=== PATIENT | male | born 1930 | race Caucasian/White ===

== ENCOUNTER 2016-11-21 23:10 | Emergency (ER) | payer MEDICARE ==
[~2016-11-21 23:10] MED LIST: Sodium Chloride 0.9% 1,000 ML BAG ONE
[2016-11-22] LABS: #Eosinphils 0.2 thou/uL (0.0-0.7); #Lymphocytes 1.6 thou/uL (1.20-3.40); #Monocytes 0.5 thou/uL (0.11-0.59); #Neutrophils 2.8 thou/uL (1.40-6.50); %Basophils 0.9 % (0.0-1.0); %Eosinophils 4.2 % (0.0-10.0); %Lymphocytes 31.1 % (21.0-51.0); %Monocytes 9.6 % (0.0-10.0); %Neutrophils 54.2 % (42.0-75.0); Mean Corpuscular HGB CONC 32.7 g/dL (32.0-36.0); Mean Corpuscular Hemoglobin 30.9 pg (27.0-31.0); Mean Corpuscular Volume 94.6 fl (80.0-94.0); Platelet Count 153 thou/uL (130-400); Red Blood Cell (RBC) Count 4.86 mill/uL (4.70-6.10); White Blood Cell (WBC) Count 5.2 thou/uL (4.8-10.8)
[2016-11-22 00:06] LABS: Clarity Cloudy (Clear)
[2016-11-22 00:08] LABS: Leukocyte Negative (Negative); Nitrite Negative (Negative); Protein, Urine (Dipstick) > or equal to 300 mg/dL (Neg-Trace)
[2016-11-22 00:09] LABS: Bilirubin Negative (Negative); Blood, Urine Large (Negative); Glucose, Urine (Dipstick) Negative (Negative); Urobilinogen 0.2 mg/dL (0.2-1.0)
[2016-11-22 00:10] LABS: Bacteria/HPF 2+ HPF (None Seen); RBC/HPF GREATER THAN 50-TNTC HPF (0-3); WBC/HPF 0-3 HPF (0-3)
[2016-11-22 00:15] LABS: ALT (SGPT) 17 U/L (0-55); AST (SGOT) 28 U/L (5-34); Albumin 3.6 g/dL (3.4-4.8); Alkaline Phosphatase 84 U/L (40-150); Anion Gap 17 mmol/L (10-20); BUN (Urea Nitrogen) 28 mg/dL (8.4-25.7); Bilirubin, Total 0.8 mg/dL (0.2-1.2); CK (CPK) 93 U/L (30-200); Calc. Creatinine Clearance 0 mL/min (70-130); Carbon Dioxide 23 mmol/L (23-31); Chloride 103 mmol/L (98-107); Estimated GFR-MDRD 48; Globulin 2.9 g/dL (2.4-3.5); Glucose 104 mg/dL (83-110); Potassium 5.2 mmol/L (3.5-5.1); Protein, Total 6.5 g/dL (5.8-8.1); Sodium 138 mmol/L (136-145)
[2016-11-22 00:42] LABS: CKMB 2.5 ng/mL (0-6.6)
[2016-11-22 00:43] LABS: Troponin I Less than 0.010 ng/mL (< 0.028)
[2016-11-22] MEDS ORDERED: Ciprofloxacin 500 MG TAB ONE (02:03)
--- NOTE | 2016-11-22 03:09 | ERRECORD ---
[facility] EMERGENCY RECORD HPI HEMATURIA (SatNov 22, 2016 00:06 LHOD) CHIEF COMPLAINT: Patient presents for evaluation of hematuria. HISTORIAN: History provided by patient. TIME COURSE: SATURDAY PT REPORTS HE WAS IN HIS YARD WHEN HE LOST HIS FOOTING AND FELL ON LEFT SIDE. HE REPORTS HE HAS HAD SOME LEFT SIDED SORENESS. HIS URINE HAS BEEN DARK, BUT TONIGHT HE NOTED CLOTS OF BLOOD. REPORTS SORENESS BEHIND LEFT SCAPULA. ASSOCIATED WITH MALE: Associated with anticoagulant use, aspirin, No associated abdominal pain, No associated chills, No associated diarrhea, No associated fever, No associated flank pain, No associated melena, No associated nausea. ROS (SatNov 22, 2016 00:09 LHOD) CONSTITUTIONAL: Historian denies chills, denies fever. CARDIOVASCULAR: Historian reports chest pain, in the left chest, upper, REPORTS SOME "SORENESS" BEHIND LEFT SCAPULA. DENIES CHEST PAIN. RESPIRATORY: Historian denies cough, denies shortness of breath. GI: Historian denies abdominal pain, denies diarrhea, denies melena, denies nausea, denies vomiting. GENITOURINARY MALE: Historian denies dysuria, reports hematuria. MUSCULOSKELETAL: Historian reports back pain, reports neck pain. SOME STIFFNESS OF BACK OF NECK. "SORENESS" OF LEFT POSTERIOR CHEST.. SKIN: Historian reports pruritis, reports rash. LEFT UPPER SHOULDER PRURITC RASH FOR PAST 2 WEEKS. REPORTS PUTTING GOLD WOODARD OINTMENT ON IT. DENIES NEW MEDS. NEUROLOGIC: Historian denies focal weakness, denies headache. HEMO/LYMPHATIC: Historian reports easy bruising, ASA. ALLERGIC/IMMUNOLOGIC: Historian denies hives. PSYCHIATRIC: Historian denies alcohol abuse. NOTES: All systems reviewed, negative except as described above. PAST MEDICAL HISTORY MEDICAL HISTORY: Flu vaccine not up to date, Tetanus not up to date, Pneumococcal vaccine not up to date, Past medical history includes genitourinary history, benign prostatic hypertrophy, Past medical history includes history of hypertension, which has been treated. (23:23 CJEF) MALE SURGICAL HISTORY: Prostate surgery. X2 STENTS PLACED. (23:23 CJEF) PSYCHIATRIC HISTORY: No previous psychiatric history. (23:23 CJEF) SOCIAL HISTORY: Patient denies alcohol use, Patient denies drug use, Patient has no smoking history. (23:23 CJEF) NOTES: Nursing records reviewed, REPORTS APPROX. 1 YEAR AGO HE HAD CARDIAC STENT. WAS TOLD HIS HEART HAD IRREGULAR HEARTBEAT, BUT &a-1R&a+25V*p+0X*[id number]*c202B*c15G*c2P*p-0X&a-25V&a+1R Name: Loco Machuca : 1930 M86 MedRec: [id number] AcctNum: [id number] Prepared: SatNov 22, 2016 03:56 by Interface Page 1 of 4 pMD [facility] EMERGENCY RECORD DOES NOT RECOGNIZE DX OF AFIB. HX OF TURP FOR PROSTATE ENLARGEMENT APPROX. 5 YEARS AGO. (23:28 LHOD) KNOWN ALLERGIES No Known Drug Allergies CURRENT MEDICATIONS aspirin: TABLET : Strength - 81 mg : ORAL Patient Dose: 325 mg Oral once a day. (23:19 CJEF) carvedilol: TABLET : Strength - 6.25 mg : ORAL Patient Dose: 6.125 mg Oral 2 times a day. (23:20 CJEF) spironolactone: TABLET : Strength - 25 mg : ORAL Patient Dose: 25 mg Oral once a day. (23:20 CJEF) hydrALAZINE: TABLET : Strength - 25 mg : ORAL Patient Dose: 25 mg Oral 3 times a day. (23:21 CJEF) VITAL SIGNS VITAL SIGNS: BP: 149/82, Pulse: 76, Resp: 18, Temp: 97.4 (Tympanic), Pain: 2, O2 sat: 98 on Room Air, Time: 11/21/2016 23:16. (23:16 CJEF) BP: 135/85, Pulse: 98, Resp: 18, O2 sat: 97 on Room Air, Time: 11/21/2016 23:56. (23:56 CJEF) BP: 146/88, Pulse: 90 (Irregular), Resp: 20, O2 sat: 97, Time: 11/22/2016 01:05. (SatNov 22, 2016 01:05 MCRS) BP: 138/91, Pulse: 98 (Irregular), Resp: 18, O2 sat: 97, Time: 11/22/2016 01:30. (SatNov 22, 2016 01:30 MCRS) BP: 136/86, Pulse: 89, Resp: 18, Temp: 98.1, Pain: 0, O2 sat: 96 on ra, Time: 11/22/2016 03:37. (SatNov 22, 2016 03:37 MCRS) PHYSICAL EXAM (SatNov 22, 2016 00:30 LHOD) CONSTITUTIONAL: Vital signs reviewed, Patient afebrile, Pulse normal, Blood pressure normal, Respiratory rate normal, Patient appears pain free, AWAKE, ALERT---HAS CONTAINER IN ROOM WITH A FEW ML OF BLOOD TINGED URINE AND TINY CLOTS. HEAD: Head exam included findings of head atraumatic. EYES: Pupils equally round and reactive to light, Extraocular muscles intact. ENT: Pharynx exam normal. NECK: Neck exam included findings of normal range of motion, Trachea midline. RESPIRATORY CHEST: Respiratory exam included findings of no respiratory distress, Breath sounds diminished, to the left lower lobe. CARDIOVASCULAR: Cardiovascular exam included findings of, rate normal, rhythm irregularly irregular. ABDOMEN MALE: Abdominal exam included findings of abdomen &a-1R&a+25V*p+0X*x1618O*c202B*c15G*c2P*p-0X&a-25V&a+1R Name: Loco Machuca : 1930 M86 MedRec: [id number] AcctNum: [id number] Prepared: SatNov 22, 2016 03:56 by Interface Page 2 of 4 pMD [facility] EMERGENCY RECORD nontender. BACK: Tenderness, paraspinal to the left upper back, paraspinal to the left mid back, VERY MILD LEFT UPPER BACK TENDERNESS WITHOUT CREPITUS OR OBVIOUS BRUISING. UPPER EXTREMITY: SOME DISCOMFORT OF LEFT SHOULDER WITH ABDUCTION, NORMAL ROM WITHOUT SWELLING OR BRUISING OF SHOULDER. LOWER EXTREMITY: Lower extremity exam normal. NEURO: Neuro exam findings include patient oriented to person, place and time, Speech normal, Memory normal, Cranial nerves intact, no focal motor deficits, no focal sensory deficits. SKIN: Rash present, FAINT ERYTHEMATOUS RASH OF LEFT UPPER POSTERIOR SHOULDER. MID ANTERIOR CHEST NEAR STERNAL NOTCH PT HAS ERTHEMATOUS PATCH OF SKIN WTIH CLEAR BLEBS (HE REPORTS GETS FREQUENTLY). EKG INTERPRETATION (23:57 LHOD) 12 LEAD EKG INTERPRETATION: 12 lead EKG interpreted by Emergency Department Physician at time of study, 12 lead EKG shows, atrial fibrillation with controlled ventricular response, Rate (beats per minute): 91, T waves, inverted, Leads affected: I, Leads affected: aVl, [place], left, LBBB. RADIOLOGYINTERPRETATION (SatNov 22, 2016 00:42 LHOD) CHEST: Films of the chest show, patchy infiltrate, to the right lower lobe, pleural effusion less than 10% on the right, cardiomegaly, Other findings: ELEVATED RIGHT HEMIDIAPHRAGM, Chest CT, without contrast shows, Other findings: SCATTERED BILATERAL PULMONARY NODULES MEASURING UP TO 4 MM. MODERATE SIZED RIGHT PLEURAL EFFUSION. TRACE PERICARDIAL EFFUSION. NO THORACIC ANEURYSM. PROMINENT NUMBER OF MEDIASTINAL LYMPH NODES MEASURING LESS THAN 1 CM. MEDICATION ADMINISTRATION SUMMARY Drug Name: ciprofloxacin HCl oral, Dose Ordered: 500 mg, Route: Oral, Status: Given, Time: 02:05 11/22/2016, Drug Name: Normal Saline, Dose Ordered: 100 mL/hr, Route: IV Fluid Infusion, Status: Given, Time: 00:11 11/22/2016, Detailed record available in Medication Service section. DOCTOR NOTES (SatNov 22, 2016 00:28 LHOD) TEXT: 0028--CT OF CHEST AND ABDOMEN TO BE DONE W/O CONTRAST DUE TO PT'S DIMINISHED RENAL FUNCTION. EVALUATING FOR GROSS RENAL ABNORMALITY AND CHEST TO LOOK AT RIGHT LOWER LOBE FOR POSSIBLE PULMONARY CONTUSION. PT HAS AFIB, BUT I DO NOT SIGNIFICANTLY SUSPECT PE. 0126--CT OF CHEST / ABDOMEN COMPLETE. PT DENIES PAIN, STILL STATES MILDLY SORE. IN LOOKING AT CT TONIGHT. PT HAS LARGE, LARGE RIGHT PLEURAL EFFUSION, BUT IT HAS BEEN SEEN SINCE 2015. ECHO WAS DONE THEN &a-1R&a+25V*p+0X*u1646M*c202B*c15G*c2P*p-0X&a-25V&a+1R Name: Loco Machuca : 1930 M86 MedRec: [id number] AcctNum: [id number] Prepared: SatNov 22, 2016 03:56 by Interface Page 3 of 4 pMD [facility] EMERGENCY RECORD TO R/O PERICARDIAL EFFUSION, BUT HE HAD EVIDENCE AT THAT TIME OF MR AND DIMINISHED EF. AWAITING CT REPORT TONIGHT. 0150--CT OF CHEST READ. AWAITING CT OF ABDOMEN REPORT. 0207--PT IN NO RESPIRATORY DISTRESS. LARGE RIGHT PLEURAL EFFUSION NOTED PREVIOUSLY. PT ENCOURAGED TO F/U WITH CONCERNING CHF. UNKNOWN IF PT MAY HAVE OTHER UNDERLYING PULMONARY ABNORMALITY OR MALIGNANCY, BUT CAN HAVE ADDITIONAL W/U OUTPATIENT. PT ALSO HAS ENLARGED PROSTATE. CAN NOT R/O PROSTATE CA, SO PT ENCOURAGED TO CONTACT HIS UROLOGIST FOR F/U. NO EVIDENCE OF ACUTE RENAL OR THORACIC TRAUMATIC INJURY. PROBLEM LIST No recorded problems DIAGNOSIS (SatNov 22, 2016 02:00 LHOD) FINAL: PRIMARY: HEMATURIA WITH BACTURIA AND PROSTATIC ENLARGEMENT, ADDITIONAL: CONGESTIVE HEART FAILURE---CHRONIC WITH PLEURAL EFFUSIONS. PRESCRIPTION (SatNov 22, 2016 02:01 LHOD) Cipro tablet: TABLET : 500 mg : ORAL : Quantity: 1 Unit: tab(s) Route: ORAL Schedule: 2 times a day Dispense: 14 May substitute. Refills: No Refills . NOTES: No Refills. Flomax: CAPSULE, EXT RELEASE 24 HR : 0.4 mg : ORAL : Quantity: 1 Unit: tab(s) Route: ORAL Schedule: once a day (in the morning) Dispense: 30 May substitute. Refills: No Refills . NOTES: No Refills. DISPOSITION PATIENT: Disposition Type: Discharge, Disposition: *Discharge Home, Condition: Good. (SatNov 22, 2016 02:00 LHOD) Disposition Transport: Car. (SatNov 22, 2016 03:02 ADEA) Patient left the department. (SatNov 22, 2016 03:02 ADEA) Betts: HORACIO=DIVINA Boles, Michael CJEF=DIVINA Lizama, Mandy LHOD=MD Reta, Joycelyn MCRS=DIVINA Romero, Raul &a-1R&a+25V*p+0X*r2736R*c202B*c15G*c2P*p-0X&a-25V&a+1R Name: Loco Machuca : 1930 M86 MedRec: [id number] AcctNum: [id number] Prepared: SatNov 22, 2016 03:56 by Interface Page 4 of 4 pMD MTDD
--- NOTE | 2016-11-22 03:15 | PICIS ---
[facility] EMERGENCY RECORD TRIAGE (23:19 CJEF) TRIAGE NOTES: PT REPORTS THAT HE FELL ABOUT 3 DAYS AGO AND LANDED ON HIS LEFT SHOULDER AND LEFT SIDE OF BACK. PT REPORTS THAT HE HAS BEEN SORE SINCE THEN. PT ALSO REPORTS THAT HIS URINE HAS BEEN GETTING DARKER AND HE HAS STARTED TO NOTICE BLOOD CLOTS IN HIS URINE. (23:19 CJEF) PATIENT: NAME: Loco Machuca, AGE: 86, GENDER: male, : Maura 1930, TIME OF GREET: SatNov 21, 2016 23:10, PREFERRED LANGUAGE: Romansh, ETHNICITY: Not or , ECODE BILLING MAP: [facility], SSN: [id number], Zip Code: [address], KG WEIGHT: 90.72, PHONE: , , , PERSON ID: [id number], PCP: MD CALIXTO IMELDA. (23:19 CJEF) COMPLAINT: FELL. (23:19 CJEF) ADMISSION: URGENCY: 3 Urgent, ADMISSION SOURCE: Home, TRANSPORT: Walk-in, BED: TRIAGE. (23:19 CJEF) ASSESSMENT: Assessment: LEFT SHOULDER AND LEFT UPPER BACK PAIN; BLOOD CLOTS IN URINE. (23:23 CJEF) PAIN: Patient complains of pain described as, Location LEFT SHOULDER AND LEFT UPPER BACK. (23:23 CJEF) IMMUNIZATIONS: Flu vaccine not up to date, Tetanus not up to date, Pneumococcal vaccine not up to date. (23:23 CJEF) SIRS SCORING: Heart Rate 55-109 (0), Temp range 96.8-101.1 (0), respiratory rate 12-24 (0), Mental Status altered: no (0), Infection or Suspected Infection: No. (23:23 CJEF) TRIAGE SCREENING: Patient denies suicidal ideation, Patient denies presence of domestic violence. (23:23 CJEF) PROVIDERS: TRIAGE NURSE: Mandy Lizama RN. (23:19 CJEF) VITAL SIGNS: BP 149/82, Pulse 76, Resp 18, Temp 97.4, (Tympanic), Pain 2, O2 Sat 98, on Room Air, Time 11/21/2016 23:16. (23:16 CJEF) PREVIOUS VISIT ALLERGIES: No Known Drug Allergies. (23:19 CJEF) No Known Drug Allergies. (23:23 CJEF) KNOWN ALLERGIES No Known Drug Allergies CURRENT MEDICATIONS aspirin: TABLET : Strength - 81 mg : ORAL Patient Dose: 325 mg Oral once a day. (23:19 CJEF) carvedilol: TABLET : Strength - 6.25 mg : ORAL Patient Dose: 6.125 mg Oral 2 times a day. (23:20 CJEF) spironolactone: TABLET : Strength - 25 mg : ORAL Patient Dose: 25 mg Oral once a day. (23:20 CJEF) hydrALAZINE: TABLET : Strength - 25 mg : ORAL Patient Dose: 25 mg Oral 3 times a day. (23:21 CJEF) &a-1R&a+25V*p+0X*a5115H*c202B*c15G*c2P*p-0X&a-25V&a+1R Name: Loco Machuca : 1930 M86 MedRec: [id number] AcctNum: [id number] Prepared: SatNov 22, 2016 04:01 by Interface Page 1 of 13 pMD [facility] EMERGENCY RECORD VITAL SIGNS VITAL SIGNS: BP: 149/82, Pulse: 76, Resp: 18, Temp: 97.4 (Tympanic), Pain: 2, O2 sat: 98 on Room Air, Time: 11/21/2016 23:16. (23:16 CJEF) BP: 135/85, Pulse: 98, Resp: 18, O2 sat: 97 on Room Air, Time: 11/21/2016 23:56. (23:56 CJEF) BP: 146/88, Pulse: 90 (Irregular), Resp: 20, O2 sat: 97, Time: 11/22/2016 01:05. (SatNov 22, 2016 01:05 MCRS) BP: 138/91, Pulse: 98 (Irregular), Resp: 18, O2 sat: 97, Time: 11/22/2016 01:30. (SatNov 22, 2016 01:30 MCRS) BP: 136/86, Pulse: 89, Resp: 18, Temp: 98.1, Pain: 0, O2 sat: 96 on ra, Time: 11/22/2016 03:37. (SatNov 22, 2016 03:37 MCRS) NURSING ASSESSMENT: EXTREMITY UPPER (23:24 CJEF) PAIN: aching pain, LEFT SHOULDER AND UPPER BACK, on a scale 0-10 patient rates pain as 2. LEFT UPPER EXTREMITY: Left upper extremity assessment findings include capillary refill less than 2 seconds, Skin color normal to hand, Skin temperature to hand warm, Distal sensation intact, Muscle tone normal. RIGHT UPPER EXTREMITY: Right upper extremity assessment findings include capillary refill less than 2 seconds, Skin color normal to hand, Skin temperature to hand warm, Distal sensation intact, Muscle tone normal. NOTES: Patient tolerated procedure well. SAFETY: Side rails up, Cart/Stretcher in lowest position, Family at bedside, Call light within reach, Hospital ID band on. NURSING ASSESSMENT: FALL RISK (23:36 CJ) FALL RISK: Fall risk assessment findings include: History of falls (5), No bed rest greater than 2 days (0), No use of level of consciousness altering agents with mentation or cognitive changes (0), No change in blood pressure (0), Sensory deficits (1), Impaired mobility (3), No neurologic diagnosis (0), Elimination problems (3), No confusion (0), Total score 12, Fall risk. HENDRICH II FALL RISK: Hendrich II Fall Risk assessment findings include patient not confused, disoriented or impulsive, not symptomatic or depressed, altered elimination(1), no dizziness or vertigo, male(1), no antiepileptics (anticonvulsants) administered, no Benzodiazepines administered, Multiple attempts, but successful(3), Total score 5, Score greater than 5. Patient is at high risk for fall. Fall risk precautions initiated. NURSING ASSESSMENT: GENITOURINARY (23:23 CJEF) CONSTITUTIONAL: Complex assessment performed, Patient arrives, via hospital wheelchair, Unsteady gait, Assistance to cart, History obtained from patient, Patient appears &a-1R&a+25V*p+0X*m7041M*c202B*c15G*c2P*p-0X&a-25V&a+1R Name: Loco Machuca : 1930 M86 MedRec: [id number] AcctNum: [id number] Prepared: SatNov 22, 2016 04:01 by Interface Page 2 of 13 pMD [facility] EMERGENCY RECORD comfortable, Patient cooperative, Patient alert, Oriented to person, place and time, Skin warm, Skin dry, Skin normal in color, Mucous membranes pink, Mucous membranes moist, Patient is well-groomed, PT REPORTS THAT HE FELL ABOUT 3 DAYS AGO AND LANDED ON HIS LEFT SHOULDER AND LEFT SIDE OF BACK. PT REPORTS THAT HE HAS BEEN SORE SINCE THEN. PT ALSO REPORTS THAT HIS URINE HAS BEEN GETTING DARKER AND HE HAS STARTED TO NOTICE BLOOD CLOTS IN HIS URINE. PT REPORTS SLOW URINATION. GENITOURINARY MALE: Associated with urinary complaints described as, "SLOW URINATION"; CLOTS FOUND IN URINE. ABDOMEN: Abdomen assessment findings include abdomen symmetrical, Abdomen soft, non-tender, no associated nausea, no associated vomiting. NOTES: Patient tolerated procedure well. SAFETY: Side rails up, Cart/Stretcher in lowest position, Family at bedside, Call light within reach, Hospital ID band on. NURSING ASSESSMENT: SKIN (23:36 CJEF) SKIN: Skin assessment findings include skin warm, Skin dry, Skin normal in color, Notes: BRUISE TO LEFT POSTERIOR UPPER ARM. MEGHANN SCALE: (3) Sensory perception slightly limited, (3) Skin is occasionally moist, (3) Patient walks occasionally, (3) Slightly limited mobility, (3) Adequate nutrition, (3) Patient has no apparent problem moving, Meghann Risk Total: 18. NOTES: Patient tolerated procedure well. SAFETY: Side rails up, Cart/Stretcher in lowest position, Family at bedside, Call light within reach, Hospital ID band on. NURSING PROCEDURE: FLOOR WORKER TRANSFER BAY (23:45 CJEF) PATIENT IDENTIFIER: Patient actively involved in identification process, Patient's identity verified by patient stating name, Patient's identity verified by patient stating date. FLOOR WORKER TRANSFER BAY: Patient placed on vp digital marketing, Heart rate: 98, showing atrial fibrillation, Patient placed on non-invasive blood pressure monitor, with disposable blood pressure cuff applied, Patient placed on continuous pulse oximetry, Adult/pediatric oxisensor applied. FOLLOW-UP: After procedure, alarms set and on, After procedure, patient tolerating monitoring. NOTES: Patient tolerated procedure well. SAFETY: Side rails up, Cart/Stretcher in lowest position, Family at bedside, Call light within reach, Hospital ID band on. NURSING PROCEDURE: DISCHARGE NOTE (Maura Nov 22, 2016 03:37 MCRS) DISCHARGE: Patient discharged to home, in a wheelchair, driving self, unaccompanied, Summary of Care printed/ provided, Patient requested and was provided an electronic copy of Discharge Instructions, Transition record given to patient, Discharge instructions given to patient, Simple or moderate discharge teaching &a-1R&a+25V*p+0X*l0251J*c202B*c15G*c2P*p-0X&a-25V&a+1R Name: Loco Machuca : 1930 M86 MedRec: [id number] AcctNum: [id number] Prepared: SatNov 22, 2016 04:01 by Interface Page 3 of 13 pMD [facility] EMERGENCY RECORD performed, discharge instructions, Prescriptions given and instructions on side effects given, Name of prescription(s) given: see list, Medication reconciliation form given, and reviewed with patient, and reviewed with see list, Above person(s) verbalized understanding of discharge instructions and follow-up care, Patient treated and evaluated by physician. BELONGINGS: Valuables remain with patient. VITAL SIGNS: BP: 136, / 86, Pulse: 89, Resp: 18, Temp: 98.1, Pain: 0, O2 sat: 96, on: ra, Time: 0208. NURSING PROCEDURE: EKG CHART (23:52 [facility]) PATIENT IDENTIFIER: Patient actively involved in identification process, Patient's identity verified by patient stating name, Patient's identity verified by patient stating date. EK lead EKG performed on the left chest, first EKG. FOLLOW-UP: After procedure, EKG for interpretation given to Dr. MCDUFFIE. NOTES: Patient tolerated procedure well. SAFETY: Side rails up, Cart/Stretcher in lowest position, Family at bedside, Call light within reach, Hospital ID band on. NURSING PROCEDURE: INTAKE AND OUTPUT (SatNov 22, 2016 02:20 MCRS) INTAKE AND OUTPUT: Oral intake(ml): 200, IV intake(ml): 100, Total Intake (ml): 300ml, Urine output(ml): 200, Total Output (ml): 200ml, Grand Total: Intake is greater than output by 100mls. NURSING PROCEDURE: IV PATIENT IDENITIFIER: Patient actively involved in identification process, Patient's identity verified by patient stating name, Patient's identity verified by patient stating date. (23:55 CJEF) Patient actively involved in identification process, Patient's identity verified by hospital ID khadijah. (SatNov 22, 2016 02:20 MCRS) IV SITE 1: IV therapy indicated for hydration, IV therapy indicated for medication administration, IV established, to the right antecubital, using an 18 gauge catheter, in one attempt, IV site prepped with CHLORAPREP, Saline lock established, Flushed with normal saline (mls): 10, Labs drawn at time of placement, labeled in the presence of the patient and sent to lab. (23:55 CJEF) FOLLOW-UP SITE 1: After procedure, sterile transparent dressing applied. (23:55 CJEF) After procedure, 2x2 dressing applied, IV discontinued, due to patient being discharged, catheter intact. (SatNov 22, 2016 02:20 MCRS) NOTES: Patient tolerated procedure well. (23:55 CJEF) SAFETY: Side rails up, Cart/Stretcher in lowest position, Family at bedside, Call light within reach, Hospital ID band on. (23:55 CJEF) NURSING PROCEDURE: NURSE NOTES &a-1R&a+25V*p+0X*x0459L*c202B*c15G*c2P*p-0X&a-25V&a+1R Name: Loco Machuca : 1930 M86 MedRec: [id number] AcctNum: [id number] Prepared: SatNov 22, 2016 04:01 by Interface Page 4 of 13 D [facility] EMERGENCY RECORD NURSES NOTES: Patient in no apparent distress, Patient resting quietly, Notes: PT PROVIDED URINAL AND PT ATTEMPTING TO PROVIDE URINE SAMPLE. (23:28 CJEF) Patient in no apparent distress, Patient resting quietly, Notes: ER MD AT BEDSIDE. (23:30 CJEF) NURSING PROCEDURE: TRANSPORT TO TESTS PATIENT IDENTIFIER: Patient actively involved in identification process, Patient's identity verified by patient stating name, Patient's identity verified by patient stating date. (23:56 CJEF) Patient actively involved in identification process, Patient's identity verified by hospital ID braabisai. (SatNov 22, 2016 00:47 MCRS) TRANSPORT TO TESTS: Transport indicated to facilitate diagnosis, Patient transported to x-ray, via wheelchair, Accompanied by x-ray geoscience laboratory technician. (23:56 CJEF) Transport indicated to facilitate diagnosis, Patient transported to CT scan, via wheelchair, Accompanied by x-ray geoscience laboratory technician. (SatNov 22, 2016 00:47 MCRS) FOLLOW-UP: After procedure, patient returned to emergency department, Notes: denies pain or distress- cardiac monitoring reestablished-IV restarted. (SatNov 22, 2016 01:05 MCRS) NOTES: Patient tolerated procedure well. (23:56 CJEF) SAFETY: Side rails up, Cart/Stretcher in lowest position, Family at bedside, Call light within reach, Hospital ID band on. (23:56 CJEF) NURSING PROCEDURE: URINE COLLECTION (23:36 CJ) PATIENT IDENTIFIER: Patient actively involved in identification process, Patient's identity verified by patient stating name, Patient's identity verified by patient stating date. URINE COLLECTION MALE: Urine collection indicated for hematuria with clots, Urine collected by void, urine red in color, and bloody. NOTES: Patient tolerated procedure well. SAFETY: Side rails up, Cart/Stretcher in lowest position, Family at bedside, Call light within reach, Hospital ID band on. ORDER DETAILS Order Name: B type Natriuretic Peptide, Status: Active, Time: 00:19 11/22/2016, User: [facility], - Ordered for: MD Mcduffie Lefayne, - Entered by: MD Mcduffie Lefayne - SatNov 22, 2016 00:19, - Quantity: 1, Order Name: FLOOR WORKER TRANSFER BAY ED, Status: Done, Time: 23:54 11/21/2016, User: [facility], - Ordered for: MD Mcduffie Lefayne, - Entered by: MD Mcduffie Lefayne - [facility] Nov 21, 2016 23:41, - Quantity: 1, &a-1R&a+25V*p+0X*f7612M*c202B*c15G*c2P*p-0X&a-25V&a+1R Name: Loco Machuca Sean : 1930 M86 MedRec: [id number] AcctNum: [id number] Prepared: SatNov 22, 2016 04:01 by Interface Page 5 of 13 pMD [facility] EMERGENCY RECORD Order Name: Cardiac Profile w/CKMB & Troponin - I, Status: Active, Time: 23:56 11/21/2016, User: [facility], - Ordered for: MD Mcduffie Lefayne, - Entered by: MD Mcduffei Lefayne - [facility] Nov 21, 2016 23:56, - Quantity: 1, Order Name: CBC with Differential, Status: Active, Time: 23:41 11/21/2016, User: [facility], - Ordered for: MD Mcduffie Lefayne, - Entered by: MD Mcduffie Lefayne - [facility] Nov 21, 2016 23:41, - Quantity: 1, Order Name: CK (CPK), Status: Active, Time: 23:42 11/21/2016, User: [facility], - Ordered for: MD Mcduffie Lefayne, - Entered by: MD Mcduffie Lefayne - [facility] Nov 21, 2016 23:42, - Quantity: 1, Order Name: Comprehensive Metabolic Panel, Status: Active, Time: 23:41 11/21/2016, User: [facility], - Ordered for: MD Mcduffie Lefayne, - Entered by: MD Mcduffie Lefayne - [facility] Nov 21, 2016 23:41, - Quantity: 1, Order Name: CT Chest Abd Pelvis W Con(Trauma), Status: Canceled, Time: 00:44 11/22/2016, User: [facility], - Ordered for: MD Mcduffie Lefayne, - Entered by: MD Mcduffie Lefayne - [facility] Nov 22, 2016 00:23, - Quantity: 1, Order Name: CT Stone Protocol, Status: Active, Time: 00:26 11/22/2016, User: [facility], - Ordered for: MD Mcduffie Lefayne, - Entered by: MD Mcduffie Lefayne - [facility] Nov 22, 2016 00:26, - Quantity: 1, Order Name: Culture, Urine, Status: Active, Time: 00:38 11/22/2016, User: [facility], - Ordered for: MD Mcduffie Lefayne, - Entered by: MD Mcduffie Lefayne - [facility] Nov 22, 2016 00:38, - Quantity: 1, Order Name: EKG 12 Lead in Emergency Room, Status: Active, Time: 23:41 11/21/2016, User: [facility], - Ordered for: MD Mcduffie Lefayne, - Entered by: MD Mcduffie Lefayne - [facility] Nov 21, 2016 23:41, - Quantity: 1, Order Name: SALINE LOCK, Status: Done, Time: 23:54 11/21/2016, User: [facility], - Ordered for: MD Mcduffie Lefayne, - Entered by: MD Mcduffie Lefayne - [facility] Nov 21, 2016 23:41, - Quantity: 1, Order Name: Urinalysis w/ Rflx Microscopic, Status: Active, Time: 23:26 11/21/2016, User: [facility], - Ordered for: MD Mcduffie Lefayne, - Entered by: MD Mcduffie Lefayne - [facility] Nov 21, 2016 23:26, - Quantity: 1, &a-1R&a+25V*p+0X*v8287K*c202B*c15G*c2P*p-0X&a-25V&a+1R Name: Loco Machuca : 1930 M86 MedRec: [id number] AcctNum: [id number] Prepared: SatNov 22, 2016 04:01 by Interface Page 6 of 13 D [facility] EMERGENCY RECORD Order Name: XR Chest Pa & Lat STANDARD, Status: Active, Time: 23:41 11/21/2016, User: [facility], - Ordered for: MD Mcduffie Lefayne, - Entered by: MD Mcduffie Lefayne - [facility] Nov 21, 2016 23:41, - Quantity: 1. MEDICATION ADMINISTRATION SUMMARY Drug Name: ciprofloxacin HCl oral, Dose Ordered: 500 mg, Route: Oral, Status: Given, Time: 02:05 11/22/2016, Drug Name: Normal Saline, Dose Ordered: 100 mL/hr, Route: IV Fluid Infusion, Status: Given, Time: 00:11 11/22/2016, Detailed record available in Medication Service section. MEDICATION SERVICE ciprofloxacin HCl oral: Order: ciprofloxacin HCl oral (ciprofloxacin HCl) - Dose: 500 mg : Oral Ordered by: Joycelyn Mcduffie MD Entered by: Joycelyn Mdcuffie MD [facility] Nov 22, 2016 01:59 , Acknowledged by: Raul Romero RN [facility] Nov 22, 2016 02:02 Documented as given by: Raul Romero RN [facility] Nov 22, 2016 02:05 Patient, Medication, Dose, Route and Time verified prior to administration. Amount given: 500mg, Site: Medication administered P.O., Patient appears Awake and alert- acceptable, Correct patient, time, route, dose and medication confirmed prior to administration, Patient advised of actions and side-effects prior to administration, Allergies confirmed and medications reviewed prior to administration, Patient in position of comfort, Side rails up, Cart in lowest position, Family at bedside. : Follow Up : Response assessment performed, No signs or symptoms of allergic reaction noted, No change in symptoms. (SatNov 22, 2016 02:20 MCRS) Normal Saline: Order: Normal Saline (0.9 % sodium chloride) - Dose: 100 mL/hr : IV Fluid Infusion Ordered by: Joycelyn Mcduffie MD Entered by: Joycelyn Mcduffie MD [facility] Nov 21, 2016 23:45 , Acknowledged by: Raul Romero RN [facility] Nov 21, 2016 23:57 Documented as given by: Raul Romero RN [facility] Nov 22, 2016 00:11 Patient, Medication, Dose, Route and Time verified prior to administration. Amount given: 1000ml, IV SITE #1 IV fluids established for hydration, IV SITE #1 into right antecubital, IV SITE #1 1st bag hung, amount 1 Liter hung, IV SITE #1 Rate of infusion (non-bolus) Infusing at 100 ml/hr, via primary tubing, IV SITE #1 on IV pump, Awake and alert- acceptable, Catheter placement confirmed via flush prior to administration, IV site without signs or symptoms of infiltration during medication administration, No swelling during administration, No drainage during administration, IV flushed after administration, Correct patient, time, route, dose and medication &a-1R&a+25V*p+0X*h2227P*c202B*c15G*c2P*p-0X&a-25V&a+1R Name: Loco Machuca : 1930 M86 MedRec: [id number] AcctNum: [id number] Prepared: SatNov 22, 2016 04:01 by Interface Page 7 of 13 pMD [facility] EMERGENCY RECORD confirmed prior to administration, Patient advised of actions and side-effects prior to administration, Allergies confirmed and medications reviewed prior to administration, Patient in position of comfort, Side rails up, Cart in lowest position. : Follow Up : Response assessment performed, No signs or symptoms of allergic reaction noted, No change in symptoms, _IV SITE #1:_, IV fluid infusion discontinued, on SatNov 22, 2016 01:28, Total fluid hydration time IV site 1 1 hour, 20 minutes, ., Total amount infused: 100ml, IV Line flushed after administration, Advised not to ambulate without assistance, Patient in position of comfort, Side rails up, Cart in lowest position, Call light in reach, IV stopped due to history of CHF and elevated BNP.. BLE remains 3+/4+ edema. (SatNov 22, 2016 01:27 MCRS) HPI HEMATURIA (SatNov 22, 2016 00:06 LHOD) CHIEF COMPLAINT: Patient presents for evaluation of hematuria. HISTORIAN: History provided by patient. TIME COURSE: SATURDAY PT REPORTS HE WAS IN HIS YARD WHEN HE LOST HIS FOOTING AND FELL ON LEFT SIDE. HE REPORTS HE HAS HAD SOME LEFT SIDED SORENESS. HIS URINE HAS BEEN DARK, BUT TONIGHT HE NOTED CLOTS OF BLOOD. REPORTS SORENESS BEHIND LEFT SCAPULA. ASSOCIATED WITH MALE: Associated with anticoagulant use, aspirin, No associated abdominal pain, No associated chills, No associated diarrhea, No associated fever, No associated flank pain, No associated melena, No associated nausea. ROS (SatNov 22, 2016 00:09 LHOD) CONSTITUTIONAL: Historian denies chills, denies fever. CARDIOVASCULAR: Historian reports chest pain, in the left chest, upper, REPORTS SOME "SORENESS" BEHIND LEFT SCAPULA. DENIES CHEST PAIN. RESPIRATORY: Historian denies cough, denies shortness of breath. GI: Historian denies abdominal pain, denies diarrhea, denies melena, denies nausea, denies vomiting. GENITOURINARY MALE: Historian denies dysuria, reports hematuria. MUSCULOSKELETAL: Historian reports back pain, reports neck pain. SOME STIFFNESS OF BACK OF NECK. "SORENESS" OF LEFT POSTERIOR CHEST.. SKIN: Historian reports pruritis, reports rash. LEFT UPPER SHOULDER PRURITC RASH FOR PAST 2 WEEKS. REPORTS PUTTING GOLD WOODARD OINTMENT ON IT. DENIES NEW MEDS. NEUROLOGIC: Historian denies focal weakness, denies headache. HEMO/LYMPHATIC: Historian reports easy bruising, ASA. ALLERGIC/IMMUNOLOGIC: Historian denies hives. PSYCHIATRIC: Historian denies alcohol abuse. NOTES: All systems reviewed, negative except as described above. &a-1R&a+25V*p+0X*a2857B*c202B*c15G*c2P*p-0X&a-25V&a+1R Name: Loco Machuca : 1930 M86 MedRec: [id number] AcctNum: [id number] Prepared: SatNov 22, 2016 04:01 by Interface Page 8 of 13 pMD [facility] EMERGENCY RECORD PAST MEDICAL HISTORY MEDICAL HISTORY: Flu vaccine not up to date, Tetanus not up to date, Pneumococcal vaccine not up to date, Past medical history includes genitourinary history, benign prostatic hypertrophy, Past medical history includes history of hypertension, which has been treated. (23:23 CJEF) MALE SURGICAL HISTORY: Prostate surgery. X2 STENTS PLACED. (23:23 CJEF) PSYCHIATRIC HISTORY: No previous psychiatric history. (23:23 CJEF) SOCIAL HISTORY: Patient denies alcohol use, Patient denies drug use, Patient has no smoking history. (23:23 CJEF) NOTES: Nursing records reviewed, REPORTS APPROX. 1 YEAR AGO HE HAD CARDIAC STENT. WAS TOLD HIS HEART HAD IRREGULAR HEARTBEAT, BUT DOES NOT RECOGNIZE DX OF AFIB. HX OF TURP FOR PROSTATE ENLARGEMENT APPROX. 5 YEARS AGO. (23:28 LHOD) PHYSICAL EXAM (SatNov 22, 2016 00:30 LHOD) CONSTITUTIONAL: Vital signs reviewed, Patient afebrile, Pulse normal, Blood pressure normal, Respiratory rate normal, Patient appears pain free, AWAKE, ALERT---HAS CONTAINER IN ROOM WITH A FEW ML OF BLOOD TINGED URINE AND TINY CLOTS. HEAD: Head exam included findings of head atraumatic. EYES: Pupils equally round and reactive to light, Extraocular muscles intact. ENT: Pharynx exam normal. NECK: Neck exam included findings of normal range of motion, Trachea midline. RESPIRATORY CHEST: Respiratory exam included findings of no respiratory distress, Breath sounds diminished, to the left lower lobe. CARDIOVASCULAR: Cardiovascular exam included findings of, rate normal, rhythm irregularly irregular. ABDOMEN MALE: Abdominal exam included findings of abdomen nontender. BACK: Tenderness, paraspinal to the left upper back, paraspinal to the left mid back, VERY MILD LEFT UPPER BACK TENDERNESS WITHOUT CREPITUS OR OBVIOUS BRUISING. UPPER EXTREMITY: SOME DISCOMFORT OF LEFT SHOULDER WITH ABDUCTION, NORMAL ROM WITHOUT SWELLING OR BRUISING OF SHOULDER. LOWER EXTREMITY: Lower extremity exam normal. NEURO: Neuro exam findings include patient oriented to person, place and time, Speech normal, Memory normal, Cranial nerves intact, no focal motor deficits, no focal sensory deficits. SKIN: Rash present, FAINT ERYTHEMATOUS RASH OF LEFT UPPER POSTERIOR SHOULDER. MID ANTERIOR CHEST NEAR STERNAL NOTCH PT HAS ERTHEMATOUS PATCH OF SKIN WTIH CLEAR BLEBS (HE REPORTS GETS FREQUENTLY). LAB INTERPRETATION (SatNov 22, 2016 00:37 LHOD) &a-1R&a+25V*p+0X*r0158C*c202B*c15G*c2P*p-0X&a-25V&a+1R Name: Loco Machuca : 1930 M86 MedRec: [id number] AcctNum: [id number] Prepared: SatNov 22, 2016 04:01 by Interface Page 9 of 13 pMD [facility] EMERGENCY RECORD INTERPRETATION: I reviewed the lab results, CBC normal, Chemistry abnormal, Potassium elevated, BUN elevated, Creatinine elevated, Cardiac enzymes abnormal, CPK normal, CK-MB normal, Troponin normal, BNP elevated, Urinalysis abnormal, positive for erythrocytes, positive for bacteria. EVENTS TRANSFER: Triage to Emergency Triage. (SatNov 21, 2016 23:19 [facility]) Emergency Triage to Main ED -01. (23:23 [facility]) Emergency Main ED -01 to -02. (23:28 [facility]) Removed from Emergency Main ED -02. (SatNov 22, 2016 03:02 [facility]) RADIOLOGYINTERPRETATION (SatNov 22, 2016 00:42 LHOD) CHEST: Films of the chest show, patchy infiltrate, to the right lower lobe, pleural effusion less than 10% on the right, cardiomegaly, Other findings: ELEVATED RIGHT HEMIDIAPHRAGM, Chest CT, without contrast shows, Other findings: SCATTERED BILATERAL PULMONARY NODULES MEASURING UP TO 4 MM. MODERATE SIZED RIGHT PLEURAL EFFUSION. TRACE PERICARDIAL EFFUSION. NO THORACIC ANEURYSM. PROMINENT NUMBER OF MEDIASTINAL LYMPH NODES MEASURING LESS THAN 1 CM. EKG INTERPRETATION (23:57 LHOD) 12 LEAD EKG INTERPRETATION: 12 lead EKG interpreted by Emergency Department Physician at time of study, 12 lead EKG shows, atrial fibrillation with controlled ventricular response, Rate (beats per minute): 91, T waves, inverted, Leads affected: I, Leads affected: aVl, [place], left, LBBB. DOCTOR NOTES (SatNov 22, 2016 00:28 LHOD) TEXT: 0028--CT OF CHEST AND ABDOMEN TO BE DONE W/O CONTRAST DUE TO PT'S DIMINISHED RENAL FUNCTION. EVALUATING FOR GROSS RENAL ABNORMALITY AND CHEST TO LOOK AT RIGHT LOWER LOBE FOR POSSIBLE PULMONARY CONTUSION. PT HAS AFIB, BUT I DO NOT SIGNIFICANTLY SUSPECT PE. 0126--CT OF CHEST / ABDOMEN COMPLETE. PT DENIES PAIN, STILL STATES MILDLY SORE. IN LOOKING AT CT TONIGHT. PT HAS LARGE, LARGE RIGHT PLEURAL EFFUSION, BUT IT HAS BEEN SEEN SINCE 2014. ECHO WAS DONE THEN TO R/O PERICARDIAL EFFUSION, BUT HE HAD EVIDENCE AT THAT TIME OF MR AND DIMINISHED EF. AWAITING CT REPORT TONIGHT. 0150--CT OF CHEST READ. AWAITING CT OF ABDOMEN REPORT. 0207--PT IN NO RESPIRATORY DISTRESS. LARGE RIGHT PLEURAL EFFUSION NOTED PREVIOUSLY. PT ENCOURAGED TO F/U WITH CONCERNING CHF. UNKNOWN IF PT MAY HAVE OTHER UNDERLYING PULMONARY ABNORMALITY OR MALIGNANCY, BUT CAN HAVE ADDITIONAL W/U OUTPATIENT. PT ALSO HAS ENLARGED PROSTATE. CAN NOT R/O PROSTATE CA, SO PT ENCOURAGED TO CONTACT HIS UROLOGIST FOR F/U. NO EVIDENCE OF ACUTE RENAL OR THORACIC &a-1R&a+25V*p+0X*[id number]*c202B*c15G*c2P*p-0X&a-25V&a+1R Name: Loco Machuca : 1930 M86 MedRec: [id number] AcctNum: [id number] Prepared: SatNov 22, 2016 04:01 by Interface Page 10 of 13 pMD [facility] EMERGENCY RECORD TRAUMATIC INJURY. PROBLEM LIST No recorded problems DIAGNOSIS (SatNov 22, 2016 02:00 LHOD) FINAL: PRIMARY: HEMATURIA WITH BACTURIA AND PROSTATIC ENLARGEMENT, ADDITIONAL: CONGESTIVE HEART FAILURE---CHRONIC WITH PLEURAL EFFUSIONS. DISPOSITION PATIENT: Disposition Type: Discharge, Disposition: *Discharge Home, Condition: Good. (SatNov 22, 2016 02:00 LHOD) Disposition Transport: Car. (SatNov 22, 2016 03:02 [facility]) Patient left the department. (SatNov 22, 2016 03:02 [facility]) INSTRUCTION (SatNov 22, 2016 02:03 LHOD) DISCHARGE: HEMATURIA, PROSTATE ENLARGED, CHF, GENERAL, PLEURAL EFFUSION. FOLLOWUP: MD DURGA, HARRY, [facility], [address] [place] [id number], [phone], MD Rosalina, Javier, Cardiology, [address] [place] [address], [facility] [id number], , Follow up with Primary Care Physician in 7-10 days, Follow up with Specialist in 5 days. SPECIAL: FOLLOW UP WITH YOUR UROLOGIST AND YOUR RFID ENGINEER....CALL BOTH IN AM TO SET UP APPOINTMENT FOLLOW UP. *RETURN IF WORSE. PRESCRIPTION (SatNov 22, 2016 02:01 LHOD) Cipro tablet: TABLET : 500 mg : ORAL : Quantity: 1 Unit: tab(s) Route: ORAL Schedule: 2 times a day Dispense: 14 May substitute. Refills: No Refills . NOTES: No Refills. Flomax: CAPSULE, EXT RELEASE 24 HR : 0.4 mg : ORAL : Quantity: 1 Unit: tab(s) Route: ORAL Schedule: once a day (in the morning) Dispense: 30 May substitute. Refills: No Refills . NOTES: No Refills. IMAGING *SUPPLY CHARGE SHEET: Image captured from scanner. (SatNov 22, 2016 03:36 [facility]) *DISCHARGE INSTRUCTIONS RECEIPT: Image captured from scanner. (SatNov 22, 2016 03:36 [facility]) Page 2 added. Image captured from scanner. (SatNov 22, 2016 03:40 MCRS) ADMIN DIGITAL SIGNATURE: DIVINA Romero, Raul. (SatNov 22, 2016 03:41 MCRS) MD Reta, Joycelyn. (SatNov 22, 2016 03:52 LHOD) &a-1R&a+25V*p+0X*[id number]*c202B*c15G*c2P*p-0X&a-25V&a+1R Name: Loco Machuca : 1930 M86 MedRec: [id number] AcctNum: [id number] Prepared: SatNov 22, 2016 04:01 by Interface Page 11 of 13 D [facility] EMERGENCY RECORD RESULTS LABORATORY: CBC with Differential Collection DT: SatNov 21, 2016 23:55, White Blood Cell (WBC) Count 5.2 thou/uL, Range (4.8-10.8), Red Blood Cell (RBC) Count 4.86 mill/uL, Range (4.70-6.10), Hemoglobin 15.0 g/dL, Range (14.0-18.0), Hematocrit 46.0 %, Range (42.0-52.0), *Mean Corpuscular Volume 94.6 - H fl, Range (80.0-94.0), Mean Corpuscular Hemoglobin 30.9 pg, Range (27.0-31.0), Mean Corpuscular HGB CONC 32.7 g/dL, Range (32.0-36.0), RBC Distribution Width 14.0 %, Range (11.5-14.5), Platelet Count 153 thou/uL, Range (130-400), Mean Platelet Volume 8.0 fL, Range (7.4-10.4), %Neutrophils 54.2 %, Range (42.0-75.0), %Lymphocytes 31.1 %, Range (21.0-51.0), %Monocytes 9.6 %, Range (0.0-10.0), %Eosinophils 4.2 %, Range (0.0-10.0), %Basophils 0.9 %, Range (0.0-1.0), #Neutrophils 2.8 thou/uL, Range (1.40-6.50), #Lymphocytes 1.6 thou/uL, Range (1.20-3.40), #Monocytes 0.5 thou/uL, Range (0.11-0.59), #Eosinphils 0.2 thou/uL, Range (0.0-0.7), #Basophils 0.0 thou/uL, Range (0.0-0.2). (SatNov 22, 2016 00:05 LHOD) CK (CPK) Collection DT: SatNov 21, 2016 23:55, CK (CPK) 93 U/L, Range (30-200). (SatNov 22, 2016 00:19 LHOD) Comprehensive Metabolic Panel Collection DT: SatNov 21, 2016 23:55, Sodium 138 mmol/L, Range (136-145), *Potassium 5.2 - H mmol/L, Range (3.5-5.1), Chloride 103 mmol/L, Range (98-107), Carbon Dioxide 23 mmol/L, Range (23-31), Anion Gap 17 mmol/L, Range (10-20), *BUN (Urea Nitrogen) 28 - H mg/dL, Range (8.4-25.7), *Creatinine 1.39 - H mg/dL, Range (0.7-1.3), Estimated GFR-MDRD 48 , Reference Range for Estimated GFR: Greater than 90, mL/min/1.73 m2 NOTE: The MDRD equation has not been validated for use, with the elderly (over 70 years of age), women, patients with, serious comorbid condition or persons with extremes of body size, muscle, mass, or nutritional status. , Glucose 104 mg/dL, Range (83-110), Calcium 9.0 mg/dL, Range (7.8-10.44), Bilirubin, Total 0.8 mg/dL, Range (0.2-1.2), Protein, Total 6.5 g/dL, Range (5.8-8.1), NOTE: Plasma values are generally 0.3 to 0.5 g/dL higher than serum values, due to the presence of fibrinogen. , Albumin 3.6 g/dL, Range (3.4-4.8), &a-1R&a+25V*p+0X*k5223A*c202B*c15G*c2P*p-0X&a-25V&a+1R Name: Loco Machuca : 1930 M86 MedRec: [id number] AcctNum: [id number] Prepared: SatNov 22, 2016 04:01 by Interface Page 12 of 13 pMD [facility] EMERGENCY RECORD Globulin 2.9 g/dL, Range (2.4-3.5), Alb/Glob Ratio 1.2 g/dL, Range (1.2-2.2), Alkaline Phosphatase 84 U/L, Range (40-150), AST (SGOT) 28 U/L, Range (5-34), ALT (SGPT) 17 U/L, Range (0-55). (SatNov 22, 2016 00:19 LHOD) Urine Microscopic Collection DT: SatNov 21, 2016 23:41, *RBC/HPF GREATER THAN 50-TNTC HPF, * - H , Range (0-3), WBC/HPF 0-3 HPF, Range (0-3), *Squamous Epithelial 4-6 - H HPF, Range (0-3), *Bacteria/HPF 2+ - H HPF, Range (None Seen). (SatNov 22, 2016 00:19 LHOD) Urinalysis w/ Rflx Microscopic Collection DT: SatNov 21, 2016 23:41, *Color Brown - H , Range (Yellow), BLOODY URINE,MACHINE UNABLE TO READ URINE STRIP DUE TO CLARITY, STRIP READ, MANUALLY BY JUVENCIO.RBS, Clarity Cloudy , Range (Clear), Specific [place], Urine 1.020 , Range (1.005-1.030), pH, Urine 5.0 , Range (5.0-9.0), Leukocyte Negative , Range (Negative), Nitrite Negative , Range (Negative), *Protein, Urine (Dipstick) > or equal to 300 - mg/dL, * H , Range (Neg-Trace), Glucose, Urine (Dipstick) Negative mg/dL, Range (Negative), Ketone, Urine Negative mg/dL, Range (Negative), Urobilinogen 0.2 mg/dL, Range (0.2-1.0), Bilirubin Negative , Range (Negative), *Blood, Urine Large - H , Range (Negative). (SatNov 22, 2016 00:19 LHOD) Cardiac Profile w/CKMB & TropI Collection DT: SatNov 22, 2016 00:01, CKMB 2.5 ng/mL, Range (0-6.6), Troponin I Less than 0.010 ng/mL, Range (< 0.028). (SatNov 22, 2016 00:46 LHOD) B type Natriuretic Peptide Collection DT: SatNov 22, 2016 00:25, *B type Natriuretic Peptide 1829.7 - H pg/mL, Range (0-100). (SatNov 22, 2016 00:51 LHOD) Betts: [facility]=DIVINA Boles, Michael CJEF=DIVINA Lizama, Mandy LHOD=MD Reta, Joycelyn MCRS=DIVINA Romero, Raul &a-1R&a+25V*p+0X*w1427F*c202B*c15G*c2P*p-0X&a-25V&a+1R Name: MachucaVladimirwarner Estrada : 1930 M86 MedRec: [id number] AcctNum: [id number] Prepared: SatNov 22, 2016 04:01 by Interface Page 13 of 13 pMD MTDD
--- NOTE | 2016-11-22 07:44 | RAD ---
TWO VIEWS CHEST: HISTORY: Chest pain. COMPARISON: 11/18/14. FINDINGS: Right-sided effusion again noted. Cardiomegaly. Upper lungs are clear. No evidence of significant interval change. IMPRESSION: Persistent right effusion. Cardiomegaly is again noted. POS: [facility]
--- NOTE | 2016-11-22 07:54 | CT ---
PRELIMINARY REPORT/[facility]/EMERGENCY AFTER HOURS PROCEDURE: EXAM: CT Chest Without Intravenous Contrast. CLINICAL HISTORY: 86 years old, male; Injury or trauma; Fall; Initial encounter; Blunt trauma (contusions or hematomas ); Injury date: 3 days ago; Patient HX: Pt having progressively darker urine over the last 3 days; TECHNIQUE: Axial computed tomography images of the chest without intravenous contrast. COMPARISON: No relevant prior studies available. FINDINGS: Lungs: Calcified nodules in both lungs are consistent with granulomas. Bilateral lung consolidations are likely atelectasis. There are scattered bilateral pulmonary nodules measuring up to 4 mm. Pleural space: There is a moderate-sized right pleural effusion. Pleural fluid extends into the righ t major fissure. There is a trace left pleural effusion. No pneumothorax. Heart: The heart is enlarged. There are coronary artery calcifications. There is a trace pericardial effusion. Bones/joints: There are degenerative changes in the spine. No acute osseous abnormality is identifie d. No dislocation. Soft tissues: There is mild bilateral gynecomastia. Vasculature: Calcifications in the rogers of the aorta and other arteries are consistent with atheros clerosis. No thoracic aortic aneurysm is identified.. Lymph nodes: There is a prominent number of mediastinal lymph nodes measuring less than 1 cm in shor t axis which is nonspecific. Other findings: Abdominal findings are reported separately. IMPRESSION: 1. No evidence of acute traumatic injury. 2. Pleural effusions. 3. Additional findings as above. Thank you for allowing us to participate in the care of your patient. Dictated and Authenticated by: Cristopher Black MD 11/22/2016 1:41 AM Central Time ( \\ [place]) EXAM: CT Abdomen and Pelvis Without Intravenous Contrast. CLINICAL HISTORY: 86 years old, male; Injury or trauma; Fall; Initial encounter; Blunt trauma (contusions or hematomas ); Injury date: 3 days ago; Patient HX: Pt having progressively darker urine over the last 3 days; TECHNIQUE: Axial computed tomography images of the abdomen and pelvis without intravenous contrast. COMPARISON: No relevant prior studies available. FINDINGS: Lower thorax: There are a moderate sized right and small left pleural effusions. Elevations in the l pauline bases are likely atelectasis. ABDOMEN: Liver: Unremarkable. Gallbladder and bile ducts: Unremarkable. No calcified stones. No ductal dilation. Pancreas: Unremarkable. Spleen: Unremarkable. Adrenals: Unremarkable. Kidneys and ureters: Unremarkable. No stones. No hydronephrosis. Stomach and bowel: There is a prominent amount of gas in the small bowel. There is no evidence of a bowel obstruction. Appendix: The appendix is unremarkable. PELVIS: Bladder: Unremarkable. No stones. Reproductive: The prostate is enlarged. ABDOMEN and PELVIS: Intraperitoneal space: Unremarkable. No free air. No significant fluid collection. Bones/joints: There are degenerative changes in the spine. There is diffuse osteopenia. No acute fra cture. No dislocation. Soft tissues: Infiltration of the subcutaneous fat in bilateral hip areas is nonspecific. Vasculature: Calcifications in the rogers of the aorta and other arteries are consistent with atheros clerosis. No abdominal aortic aneurysm is identified. Lymph nodes: Unremarkable. No enlarged lymph nodes. IMPRESSION: 1. No evidence of acute traumatic injury. 2. Pleural effusions. 3. Additional findings as above. Thank you for allowing us to participate in the care of your patient. Dictated and Authenticated by: Cristopher Black MD 11/22/2016 1:51 AM Central Time ([place] \[place]\ [place]) FINAL REPORT CT CHEST ABDOMEN AND PELVIS WITHOUT IV CONTRAST Multiple axial tomograms obtained through chest, abdomen and pelvis without contrast. HISTORY: Injury. Contusion. Fall 3 days ago with persistent pain. History is also noted on the preliminary report. FINDINGS: Large right pleural effusion. Tiny left effusion. Mild cardiomegaly. Liver, spleen, and kidneys show no evidence of acute traumatic injury. Bowel loops appear unremarka ble. Prostate is enlarged. Sagittal and coronal images of the thoracic and lumbar spine show degenerative changes in the spine. No acute compression deformity. I am in agreement with the preliminary report. Code QA POS: [facility]
== END 2016-11-22 02:20 | disposition home or self-care (01) ==
LOC: EDBD → MADERS 23:10
DX: N40.1 Benign prostatic hyperplasia with lower urinary tract symptoms (principal); R82.71 Bacteriuria; R31.9 Hematuria, unspecified; I11.0 Hypertensive heart disease with heart failure; I50.9 Heart failure, unspecified; Z79.82 Long term (current) use of aspirin
CPT/HCPCS: 71020; 71250; 74176; 80053; 81003; 81015; 82550; 82553; 83880; 84484; 85025; 87086; 93005; 96360; J7050

== ENCOUNTER 2017-02-15 13:53 | Outpatient (CLI) | payer MEDICARE ==
[2017-02-15 14:28] LABS: ALT (SGPT) 16 U/L (0-55); AST (SGOT) 24 U/L (5-34); Albumin 3.5 g/dL (3.4-4.8); Alkaline Phosphatase 71 U/L (40-150); Anion Gap 14 mmol/L (10-20); BUN (Urea Nitrogen) 42 mg/dL (8.4-25.7); Bilirubin, Total 1.1 mg/dL (0.2-1.2); Calc. Creatinine Clearance 0 mL/min (70-130); Carbon Dioxide 26 mmol/L (23-31); Cardiac Risk 3.4 (Less than 4.5); Chloride 102 mmol/L (98-107); Cholesterol 136 mg/dL (< 200 Desired); Estimated GFR-MDRD 45; Globulin 2.9 g/dL (2.4-3.5); Glucose 89 mg/dL (83-110); HDL Cholesterol 40 mg/dL (>60 Neg Risk); LDL Cholesterol, Calculated 87 mg/dL; Potassium 4.9 mmol/L (3.5-5.1); Protein, Total 6.4 g/dL (5.8-8.1); Sodium 137 mmol/L (136-145); Triglycerides 46 mg/dL (Less than 150)
[2017-02-15 14:37] LABS: #Basophils 0.1 thou/uL (0.0-0.2); #Eosinphils 0.5 thou/uL (0.0-0.7); #Lymphocytes 1.3 thou/uL (1.20-3.40); #Monocytes 0.5 thou/uL (0.11-0.59); #Neutrophils 2.7 thou/uL (1.40-6.50); %Basophils 1.1 % (0.0-1.0); %Lymphocytes 25.8 % (21.0-51.0); %Monocytes 10.5 % (0.0-10.0); %Neutrophils 53.6 % (42.0-75.0); Hemoglobin 13.2 g/dL (14.0-18.0); Mean Corpuscular Hemoglobin 30.5 pg (27.0-31.0); Mean Corpuscular Volume 95.1 fl (80.0-94.0); Mean Platelet Volume 7.4 fL (7.4-10.4); PLT Morphology Comment PLATELETS ARE SLIGHTLY DECREASED ON SLIDE; Platelet Count 104 thou/uL (130-400); RBC Distribution Width 14.2 % (11.5-14.5); Red Blood Cell (RBC) Count 4.33 mill/uL (4.70-6.10)
[2017-02-15 14:41] LABS: MDiff Complete? YES; Manual Diff?? NO
[2017-02-15 14:49] LABS: Free T4 (Free Thyroxine) 1.17 ng/dL (0.70-1.48); Thyroid Stimulating Hormone 2.1166 uIU/mL (0.35-4.94)
[2017-02-16 17:54] LABS: Creatinine, Urine 34.47 mg/dL (63-166); Microalbumin Urine 4.9 mg/dL (0.5-50.0); Microalbumin/Creat Ratio 142.2 mg/g (Less than 30)
== END 2017-02-15 13:54 | disposition home or self-care (01) ==
LOC: MADLABBHPM 13:53
PROVIDERS: ATTEND Family Medicine
DX: I10 Essential (primary) hypertension (principal)
CPT/HCPCS: 36415; 80053; 80061; 82043; 84439; 84443; 85025

== ENCOUNTER 2017-02-22 11:17 | Outpatient (CLI) | payer MEDICARE ==
[2017-02-22 12:58] LABS: Anion Gap 13 mmol/L (10-20); BUN (Urea Nitrogen) 35 mg/dL (8.4-25.7); Calc. Creatinine Clearance 0 mL/min (70-130); Calcium 8.8 mg/dL (7.8-10.44); Carbon Dioxide 25 mmol/L (23-31); Chloride 105 mmol/L (98-107); Estimated GFR-MDRD 50; Glucose 89 mg/dL (83-110); Potassium 4.7 mmol/L (3.5-5.1); Sodium 138 mmol/L (136-145)
[2017-02-22 14:42] LABS: #Basophils 0.1 thou/uL (0.0-0.2); #Eosinphils 0.4 thou/uL (0.0-0.7); #Lymphocytes 1.4 thou/uL (1.20-3.40); #Monocytes 0.5 thou/uL (0.11-0.59); #Neutrophils 2.9 thou/uL (1.40-6.50); %Eosinophils 7.3 % (0.0-10.0); %Lymphocytes 27.2 % (21.0-51.0); %Monocytes 9.4 % (0.0-10.0); %Neutrophils 55.1 % (42.0-75.0); Hemoglobin 13.6 g/dL (14.0-18.0); Mean Corpuscular HGB CONC 31.7 g/dL (32.0-36.0); Mean Corpuscular Hemoglobin 30.3 pg (27.0-31.0); Mean Corpuscular Volume 95.5 fl (80.0-94.0); Platelet Count 128 thou/uL (130-400); RBC Distribution Width 14.2 % (11.5-14.5); White Blood Cell (WBC) Count 5.3 thou/uL (4.8-10.8)
== END 2017-02-22 11:18 | disposition home or self-care (01) ==
LOC: EDBD 11:17 → MADLABBHPM 11:17
PROVIDERS: ATTEND Family Medicine
DX: N18.3 Chronic kidney disease, stage 3 (moderate) (principal); D69.59 Other secondary thrombocytopenia
CPT/HCPCS: 36415; 80048; 85025

== ENCOUNTER 2017-07-15 16:43 | Inpatient (IN) | payer MEDICARE ==
[2017-07-15] MEDS ORDERED: HYDROcodone/Acetaminophen 7.5/325 mg Tablet PO PRN (18:30)
[2017-07-15] MEDS ORDERED: Ondansetron ODT 4 MG TAB PO PRN (18:30)
[2017-07-15] MEDS: Acetaminophen 500 MG TAB PO SCH (19:52)
[2017-07-15] MEDS: Bacitracin Zinc 1 Packet TOP SCH (20:04)
[2017-07-15] MEDS: Gabapentin 100 MG CAP PO SCH (20:04)
[2017-07-15] MEDS: Senokot S 8.6-50 MG TAB PO SCH (20:04)
[2017-07-15] MEDS: traMADol HCl 50 MG TAB PO SCH (23:33)
[2017-07-16] MEDS: Acetaminophen 500 MG TAB PO SCH ×4 (01:56→18:02)
[2017-07-16] MEDS: traMADol HCl 50 MG TAB PO SCH ×4 (05:15→23:03)
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
[2017-07-16] MEDS: Polyethylene Glycol 3350 17 GM Packet PO SCH (08:36)
[2017-07-16] MEDS: Tamsulosin HCl 0.4 MG CAP PO SCH (08:36)
[2017-07-16] MEDS: Rivaroxaban 10 MG TAB PO SCH (08:37)
[2017-07-16] MEDS: Lisinopril 5 MG TAB PO SCH (08:37)
[2017-07-16] MEDS: Carvedilol 3.125 MG TAB PO SCH ×2 (08:37→17:32)
[2017-07-16] MEDS: Famotidine 20 MG TAB PO SCH (08:37)
[2017-07-16] MEDS: Gabapentin 100 MG CAP PO SCH ×2 (08:37→20:41)
[2017-07-16] MEDS: Senokot S 8.6-50 MG TAB PO SCH ×2 (08:37→20:41)
[2017-07-16] MEDS: Spironolactone 25 MG TAB PO SCH (08:37)
[2017-07-16] MEDS: Ascorbic Acid 500 mg Chewable Tablet PO SCH (08:37)
[2017-07-16] MEDS: Bacitracin Zinc 1 Packet TOP SCH ×2 (08:38→20:40)
[2017-07-16] MEDS ORDERED: Fleet Enema 133 ML BOT PR SCH (18:15)
[2017-07-16] MEDS: Bisacodyl 10 MG SUPP PR PRN (20:41)
[2017-07-17] MEDS: Acetaminophen 500 MG TAB PO SCH ×4 (00:19→18:11)
[2017-07-17] MEDS: traMADol HCl 50 MG TAB PO SCH ×4 (00:30→17:16)
[2017-07-17] MEDS: Carvedilol 3.125 MG TAB PO SCH ×2 (08:15→17:18)
[2017-07-17] MEDS: Ascorbic Acid 500 mg Chewable Tablet PO SCH (08:15)
[2017-07-17] MEDS: Spironolactone 25 MG TAB PO SCH (08:15)
[2017-07-17] MEDS: Famotidine 20 MG TAB PO SCH (08:16)
[2017-07-17] MEDS: Bacitracin Zinc 1 Packet TOP SCH ×3 (08:16→20:15)
[2017-07-17] MEDS: Gabapentin 100 MG CAP PO SCH ×2 (08:16→20:16)
[2017-07-17] MEDS: Lisinopril 5 MG TAB PO SCH (08:17)
[2017-07-17] MEDS: Rivaroxaban 10 MG TAB PO SCH (08:19)
[2017-07-17] MEDS: Polyethylene Glycol 3350 17 GM Packet PO SCH (08:19)
[2017-07-17] MEDS: Tamsulosin HCl 0.4 MG CAP PO SCH (08:20)
[2017-07-17] MEDS: Senokot S 8.6-50 MG TAB PO SCH ×2 (08:20→20:16)
[2017-07-17] MEDS: HYDROcodone/Acetaminophen 7.5/325 mg Tablet PO PRN (10:29)
[2017-07-18] MEDS: Acetaminophen 500 MG TAB PO SCH ×4 (02:21→17:56)
[2017-07-18] MEDS: HYDROcodone/Acetaminophen 7.5/325 mg Tablet PO PRN ×3 (02:24→21:28)
[2017-07-18] MEDS: traMADol HCl 50 MG TAB PO SCH ×3 (05:42→17:57)
[2017-07-18] MEDS: Carvedilol 3.125 MG TAB PO SCH ×2 (08:34→17:08)
[2017-07-18] MEDS: Tamsulosin HCl 0.4 MG CAP PO SCH (08:34)
[2017-07-18] MEDS: Bacitracin Zinc 1 Packet TOP SCH ×2 (08:34→21:28)
[2017-07-18] MEDS: Gabapentin 100 MG CAP PO SCH ×2 (08:34→21:25)
[2017-07-18] MEDS: Rivaroxaban 10 MG TAB PO SCH (08:35)
[2017-07-18] MEDS: Lisinopril 5 MG TAB PO SCH (08:36)
[2017-07-18] MEDS: Senokot S 8.6-50 MG TAB PO SCH ×2 (08:36→21:25)
[2017-07-18] MEDS: Famotidine 20 MG TAB PO SCH (08:36)
[2017-07-18] MEDS: Ascorbic Acid 500 mg Chewable Tablet PO SCH (08:36)
[2017-07-18] MEDS: Spironolactone 25 MG TAB PO SCH (08:36)
[2017-07-18] MEDS: Polyethylene Glycol 3350 17 GM Packet PO SCH (08:37)
[2017-07-18] MEDS: Bisacodyl 10 MG SUPP PR PRN (14:37)
[2017-07-18] MEDS ORDERED: Fleet Enema 133 ML BOT PR SCH (19:45)
[2017-07-19] MEDS: traMADol HCl 50 MG TAB PO SCH ×4 (01:05→17:51)
[2017-07-19] MEDS: Acetaminophen 500 MG TAB PO SCH ×4 (01:06→17:55)
[2017-07-19] MEDS: Polyethylene Glycol 3350 17 GM Packet PO SCH (08:14)
[2017-07-19] MEDS: Bacitracin Zinc 1 Packet TOP SCH ×2 (08:15→21:18)
[2017-07-19] MEDS: Tamsulosin HCl 0.4 MG CAP PO SCH (08:16)
[2017-07-19] MEDS: Spironolactone 25 MG TAB PO SCH (08:16)
[2017-07-19] MEDS: Gabapentin 100 MG CAP PO SCH ×2 (08:16→21:18)
[2017-07-19] MEDS: Rivaroxaban 10 MG TAB PO SCH (08:16)
[2017-07-19] MEDS: Senokot S 8.6-50 MG TAB PO SCH ×2 (08:16→21:06)
[2017-07-19] MEDS: Ascorbic Acid 500 mg Chewable Tablet PO SCH (08:17)
[2017-07-19] MEDS: Carvedilol 3.125 MG TAB PO SCH ×2 (08:17→17:51)
[2017-07-19] MEDS: Famotidine 20 MG TAB PO SCH (08:17)
[2017-07-19] MEDS: Lisinopril 5 MG TAB PO SCH (08:17)
[2017-07-19] MEDS: HYDROcodone/Acetaminophen 7.5/325 mg Tablet PO PRN ×2 (14:20→21:18)
[2017-07-20] MEDS: traMADol HCl 50 MG TAB PO SCH ×4 (02:05→17:12)
[2017-07-20] MEDS: Acetaminophen 500 MG TAB PO SCH ×4 (02:05→17:13)
[2017-07-20] MEDS: HYDROcodone/Acetaminophen 7.5/325 mg Tablet PO PRN (09:04)
[2017-07-20] MEDS: Lisinopril 5 MG TAB PO SCH (09:05)
[2017-07-20] MEDS: Rivaroxaban 10 MG TAB PO SCH (09:05)
[2017-07-20] MEDS: Famotidine 20 MG TAB PO SCH (09:06)
[2017-07-20] MEDS: Ascorbic Acid 500 mg Chewable Tablet PO SCH (09:06)
[2017-07-20] MEDS: Bacitracin Zinc 1 Packet TOP SCH ×2 (09:06→21:31)
[2017-07-20] MEDS: Spironolactone 25 MG TAB PO SCH (09:06)
[2017-07-20] MEDS: Carvedilol 3.125 MG TAB PO SCH ×2 (09:06→17:12)
[2017-07-20] MEDS: Tamsulosin HCl 0.4 MG CAP PO SCH (09:06)
[2017-07-20] MEDS: Gabapentin 100 MG CAP PO SCH ×2 (09:06→21:32)
[2017-07-20] MEDS: Senokot S 8.6-50 MG TAB PO SCH ×2 (09:06→21:32)
[2017-07-20] MEDS: Polyethylene Glycol 3350 17 GM Packet PO SCH (09:07)
[2017-07-21] MEDS: Acetaminophen 500 MG TAB PO SCH ×4 (00:49→17:24)
[2017-07-21] MEDS: traMADol HCl 50 MG TAB PO SCH ×4 (00:49→17:23)
[2017-07-21] MEDS: Famotidine 20 MG TAB PO SCH (08:41)
[2017-07-21] MEDS: Spironolactone 25 MG TAB PO SCH (08:41)
[2017-07-21] MEDS: Rivaroxaban 10 MG TAB PO SCH (08:41)
[2017-07-21] MEDS: Polyethylene Glycol 3350 17 GM Packet PO SCH (08:41)
[2017-07-21] MEDS: Bacitracin Zinc 1 Packet TOP SCH ×2 (08:41→20:04)
[2017-07-21] MEDS: Carvedilol 3.125 MG TAB PO SCH ×2 (08:42→17:24)
[2017-07-21] MEDS: Tamsulosin HCl 0.4 MG CAP PO SCH (08:42)
[2017-07-21] MEDS: Lisinopril 5 MG TAB PO SCH (08:42)
[2017-07-21] MEDS: Senokot S 8.6-50 MG TAB PO SCH ×2 (08:42→20:04)
[2017-07-21] MEDS: Ascorbic Acid 500 mg Chewable Tablet PO SCH (08:42)
[2017-07-21] MEDS: Gabapentin 100 MG CAP PO SCH ×2 (08:42→20:04)
[2017-07-21] MEDS: HYDROcodone/Acetaminophen 7.5/325 mg Tablet PO PRN (13:35)
--- NOTE | 2017-07-21 13:50 | RAD ---
TWO VIEWS LEFT CLAVICLE: HISTORY: Left clavicular pain. FINDINGS: AP and oblique views left clavicle obtained. The left clavicle is unremarkable. No evidence of fracture, subluxations, or bony lesions seen. IMPRESSION: No evidence of significant clavicular pathology noted. POS: [facility]
[2017-07-22] MEDS: traMADol HCl 50 MG TAB PO SCH ×3 (00:51→12:25)
[2017-07-22] MEDS: Acetaminophen 500 MG TAB PO SCH ×3 (00:53→12:26)
[2017-07-22] MEDS: Carvedilol 3.125 MG TAB PO SCH ×2 (07:57→16:16)
[2017-07-22] MEDS: Spironolactone 25 MG TAB PO SCH (07:57)
[2017-07-22] MEDS: Famotidine 20 MG TAB PO SCH (08:44)
[2017-07-22] MEDS: Ascorbic Acid 500 mg Chewable Tablet PO SCH (08:44)
[2017-07-22] MEDS: Lisinopril 5 MG TAB PO SCH (08:45)
[2017-07-22] MEDS: Gabapentin 100 MG CAP PO SCH ×2 (08:45→20:04)
[2017-07-22] MEDS: Polyethylene Glycol 3350 17 GM Packet PO SCH (08:45)
[2017-07-22] MEDS: Senokot S 8.6-50 MG TAB PO SCH ×2 (08:46→20:04)
[2017-07-22] MEDS: Rivaroxaban 10 MG TAB PO SCH (08:47)
[2017-07-22] MEDS: Tamsulosin HCl 0.4 MG CAP PO SCH (08:47)
[2017-07-22] MEDS: Bacitracin Zinc 1 Packet TOP SCH ×2 (11:16→20:06)
[2017-07-22] MEDS ORDERED: Acetaminophen 500 MG TAB PO PRN (17:08)
[2017-07-23] MEDS: Cyclobenzaprine 10 MG TAB PO PRN ×2 (00:20→08:50)
[2017-07-23] MEDS: HYDROcodone/Acetaminophen 7.5/325 mg Tablet PO PRN ×2 (00:20→14:16)
[2017-07-23 05:56] LABS: Hemoglobin 10.7 g/dL (14.0-18.0); Platelet Count 235 thou/uL (130-400)
[2017-07-23] MEDS: Polyethylene Glycol 3350 17 GM Packet PO SCH (08:47)
[2017-07-23] MEDS: Rivaroxaban 10 MG TAB PO SCH (08:48)
[2017-07-23] MEDS: Famotidine 20 MG TAB PO SCH (08:49)
[2017-07-23] MEDS: Lisinopril 5 MG TAB PO SCH (08:49)
[2017-07-23] MEDS: Tamsulosin HCl 0.4 MG CAP PO SCH (08:49)
[2017-07-23] MEDS: Carvedilol 3.125 MG TAB PO SCH ×2 (08:49→17:11)
[2017-07-23] MEDS: Bacitracin Zinc 1 Packet TOP SCH ×2 (08:49→20:45)
[2017-07-23] MEDS: Ascorbic Acid 500 mg Chewable Tablet PO SCH (08:49)
[2017-07-23] MEDS: Senokot S 8.6-50 MG TAB PO SCH ×2 (08:49→20:45)
[2017-07-23] MEDS: Gabapentin 100 MG CAP PO SCH ×2 (08:49→20:45)
[2017-07-23] MEDS: Spironolactone 25 MG TAB PO SCH (08:49)
--- NOTE | 2017-07-23 17:24 | ULT ---
LEFT LOWER EXTREMITY VENOUS DUPLEX SONOGRAM: 07/23/17 HISTORY: Left leg pain and edema. FINDINGS: The left common femoral vein and greater saphenous junction were evaluated along with the femoral, d eep femoral, popliteal, and posterior tibial veins. There is good color and spectral doppler flow, c ompression, and augmentation. IMPRESSION: No sonographic evidence of DVT within the left lower extremity. POS: [facility]
[2017-07-24] MEDS: Cyclobenzaprine 10 MG TAB PO PRN (01:28)
[2017-07-24] MEDS: HYDROcodone/Acetaminophen 7.5/325 mg Tablet PO PRN ×2 (01:28→18:27)
[2017-07-24] MEDS: traMADol HCl 50 MG TAB PO PRN (03:41)
[2017-07-24] MEDS: Polyethylene Glycol 3350 17 GM Packet PO SCH (08:07)
[2017-07-24] MEDS: Gabapentin 100 MG CAP PO SCH ×2 (08:07→21:17)
[2017-07-24] MEDS: Bacitracin Zinc 1 Packet TOP SCH ×2 (08:07→21:17)
[2017-07-24] MEDS: Rivaroxaban 10 MG TAB PO SCH (08:08)
[2017-07-24] MEDS: Ascorbic Acid 500 mg Chewable Tablet PO SCH (08:08)
[2017-07-24] MEDS: Tamsulosin HCl 0.4 MG CAP PO SCH (08:08)
[2017-07-24] MEDS: Carvedilol 3.125 MG TAB PO SCH ×2 (08:08→17:04)
[2017-07-24] MEDS: Lisinopril 5 MG TAB PO SCH (08:08)
[2017-07-24] MEDS: Famotidine 20 MG TAB PO SCH (08:08)
[2017-07-24] MEDS: Spironolactone 25 MG TAB PO SCH (08:08)
[2017-07-24] MEDS: Senokot S 8.6-50 MG TAB PO SCH ×2 (08:09→21:17)
[2017-07-24] MEDS ORDERED: traZODone HCl 50 MG TAB PO PRN (18:48)
[2017-07-24] MEDS: Emollient 15 oz bottle 450 ML, Triamcinolone Acetonide 200 MG TOP SCH ×2 (21:23)
[2017-07-25 05:12] LABS: Hemoglobin 10.5 g/dL (14.0-18.0); Platelet Count 222 thou/uL (130-400)
[2017-07-25] MEDS: HYDROcodone/Acetaminophen 7.5/325 mg Tablet PO PRN ×2 (08:46→19:50)
[2017-07-25] MEDS: Emollient 15 oz bottle 450 ML, Triamcinolone Acetonide 200 MG TOP SCH ×4 (08:48→20:41)
[2017-07-25] MEDS: Carvedilol 3.125 MG TAB PO SCH ×2 (08:48→17:07)
[2017-07-25] MEDS: Ascorbic Acid 500 mg Chewable Tablet PO SCH (08:48)
[2017-07-25] MEDS: Tamsulosin HCl 0.4 MG CAP PO SCH (08:48)
[2017-07-25] MEDS: Senokot S 8.6-50 MG TAB PO SCH ×2 (08:48→20:41)
[2017-07-25] MEDS: Spironolactone 25 MG TAB PO SCH (08:48)
[2017-07-25] MEDS: Famotidine 20 MG TAB PO SCH (08:48)
[2017-07-25] MEDS: Gabapentin 100 MG CAP PO SCH ×2 (08:48→20:41)
[2017-07-25] MEDS: Lisinopril 5 MG TAB PO SCH (08:48)
[2017-07-25] MEDS: Bacitracin Zinc 1 Packet TOP SCH ×2 (08:49→20:41)
[2017-07-25] MEDS: Rivaroxaban 10 MG TAB PO SCH (08:49)
[2017-07-25] MEDS: Polyethylene Glycol 3350 17 GM Packet PO SCH (11:04)
[2017-07-25] MEDS: Cyclobenzaprine 10 MG TAB PO PRN (19:50)
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
[2017-07-26] MEDS: Carvedilol 3.125 MG TAB PO SCH ×2 (07:31→16:22)
[2017-07-26] MEDS: Spironolactone 25 MG TAB PO SCH (07:31)
[2017-07-26] MEDS: Ascorbic Acid 500 mg Chewable Tablet PO SCH (08:24)
[2017-07-26] MEDS: Senokot S 8.6-50 MG TAB PO SCH ×2 (08:24→21:21)
[2017-07-26] MEDS: Gabapentin 100 MG CAP PO SCH ×2 (08:24→21:21)
[2017-07-26] MEDS: Lisinopril 5 MG TAB PO SCH (08:24)
[2017-07-26] MEDS: Tamsulosin HCl 0.4 MG CAP PO SCH (08:24)
[2017-07-26] MEDS: Famotidine 20 MG TAB PO SCH (08:24)
[2017-07-26] MEDS: Polyethylene Glycol 3350 17 GM Packet PO SCH (08:25)
[2017-07-26] MEDS: Rivaroxaban 10 MG TAB PO SCH (08:25)
[2017-07-26] MEDS: Emollient 15 oz bottle 450 ML, Triamcinolone Acetonide 200 MG TOP SCH ×4 (08:26→21:22)
[2017-07-26] MEDS: Bacitracin Zinc 1 Packet TOP SCH ×2 (08:26→21:21)
[2017-07-26] MEDS: HYDROcodone/Acetaminophen 7.5/325 mg Tablet PO PRN ×2 (08:37→16:21)
[2017-07-26] MEDS: traMADol HCl 50 MG TAB PO PRN (09:58)
[2017-07-27] MEDS: HYDROcodone/Acetaminophen 7.5/325 mg Tablet PO PRN ×3 (01:00→18:20)
[2017-07-27 05:16] LABS: Platelet Count 212 thou/uL (130-400)
[2017-07-27] MEDS: Carvedilol 3.125 MG TAB PO SCH ×2 (07:43→16:38)
[2017-07-27] MEDS: Spironolactone 25 MG TAB PO SCH (07:44)
[2017-07-27] MEDS: Senokot S 8.6-50 MG TAB PO SCH ×2 (08:51→21:14)
[2017-07-27] MEDS: Polyethylene Glycol 3350 17 GM Packet PO SCH (08:52)
[2017-07-27] MEDS: Rivaroxaban 10 MG TAB PO SCH (08:52)
[2017-07-27] MEDS: Gabapentin 100 MG CAP PO SCH ×2 (08:52→21:14)
[2017-07-27] MEDS: Lisinopril 5 MG TAB PO SCH (08:53)
[2017-07-27] MEDS: Famotidine 20 MG TAB PO SCH (08:53)
[2017-07-27] MEDS: Ascorbic Acid 500 mg Chewable Tablet PO SCH (08:54)
[2017-07-27] MEDS: Tamsulosin HCl 0.4 MG CAP PO SCH (08:54)
[2017-07-27] MEDS: Emollient 15 oz bottle 450 ML, Triamcinolone Acetonide 200 MG TOP SCH ×4 (08:54→21:15)
[2017-07-27] MEDS: Bacitracin Zinc 1 Packet TOP SCH ×2 (08:54→22:09)
[2017-07-27] MEDS: Cyclobenzaprine 10 MG TAB PO PRN (11:42)
[2017-07-28] MEDS: HYDROcodone/Acetaminophen 7.5/325 mg Tablet PO PRN ×2 (01:09→14:46)
[2017-07-28] MEDS: Bacitracin Zinc 1 Packet TOP SCH ×2 (09:15→20:26)
[2017-07-28] MEDS: Rivaroxaban 10 MG TAB PO SCH (09:16)
[2017-07-28] MEDS: Carvedilol 3.125 MG TAB PO SCH ×2 (09:16→17:33)
[2017-07-28] MEDS: Ascorbic Acid 500 mg Chewable Tablet PO SCH (09:16)
[2017-07-28] MEDS: Tamsulosin HCl 0.4 MG CAP PO SCH (09:16)
[2017-07-28] MEDS: Spironolactone 25 MG TAB PO SCH (09:17)
[2017-07-28] MEDS: Lisinopril 5 MG TAB PO SCH (09:17)
[2017-07-28] MEDS: Senokot S 8.6-50 MG TAB PO SCH ×2 (09:17→20:25)
[2017-07-28] MEDS: Famotidine 20 MG TAB PO SCH (09:17)
[2017-07-28] MEDS: Polyethylene Glycol 3350 17 GM Packet PO SCH (09:17)
[2017-07-28] MEDS: Gabapentin 100 MG CAP PO SCH ×2 (09:17→20:26)
[2017-07-28] MEDS: Emollient 15 oz bottle 450 ML, Triamcinolone Acetonide 200 MG TOP SCH ×4 (09:18→20:26)
[2017-07-28] MEDS ORDERED: FLU VACC TS2017-18 (>65YR) 0.5 ML SYRINGE IM ONE (21:00)
[2017-07-29 05:36] LABS: Hemoglobin 11.3 g/dL (14.0-18.0); Platelet Count 200 thou/uL (130-400)
[2017-07-29] MEDS: HYDROcodone/Acetaminophen 7.5/325 mg Tablet PO PRN ×3 (06:01→15:59)
[2017-07-29] MEDS: Polyethylene Glycol 3350 17 GM Packet PO SCH (08:02)
[2017-07-29] MEDS: Ascorbic Acid 500 mg Chewable Tablet PO SCH (08:03)
[2017-07-29] MEDS: Gabapentin 100 MG CAP PO SCH ×2 (08:03→20:22)
[2017-07-29] MEDS: Bacitracin Zinc 1 Packet TOP SCH ×2 (08:03→20:22)
[2017-07-29] MEDS: Lisinopril 5 MG TAB PO SCH (08:03)
[2017-07-29] MEDS: Famotidine 20 MG TAB PO SCH (08:04)
[2017-07-29] MEDS: Tamsulosin HCl 0.4 MG CAP PO SCH (08:04)
[2017-07-29] MEDS: Spironolactone 25 MG TAB PO SCH (08:04)
[2017-07-29] MEDS: Rivaroxaban 10 MG TAB PO SCH (08:04)
[2017-07-29] MEDS: Carvedilol 3.125 MG TAB PO SCH ×2 (08:04→16:00)
[2017-07-29] MEDS: Senokot S 8.6-50 MG TAB PO SCH ×2 (08:04→20:22)
[2017-07-29] MEDS: Emollient 15 oz bottle 450 ML, Triamcinolone Acetonide 200 MG TOP SCH ×4 (08:06→20:23)
[2017-07-29 20:26] VITALS: BMI 28.9
[2017-07-30] MEDS: HYDROcodone/Acetaminophen 7.5/325 mg Tablet PO PRN ×3 (04:34→15:22)
[2017-07-30] MEDS: Polyethylene Glycol 3350 17 GM Packet PO SCH (08:38)
[2017-07-30] MEDS: Emollient 15 oz bottle 450 ML, Triamcinolone Acetonide 200 MG TOP SCH ×4 (08:39→20:48)
[2017-07-30] MEDS: Rivaroxaban 10 MG TAB PO SCH (08:40)
[2017-07-30] MEDS: Famotidine 20 MG TAB PO SCH (08:40)
[2017-07-30] MEDS: Carvedilol 3.125 MG TAB PO SCH ×2 (08:40→17:04)
[2017-07-30] MEDS: Senokot S 8.6-50 MG TAB PO SCH ×2 (08:40→20:46)
[2017-07-30] MEDS: Tamsulosin HCl 0.4 MG CAP PO SCH (08:41)
[2017-07-30] MEDS: Spironolactone 25 MG TAB PO SCH (08:41)
[2017-07-30] MEDS: Lisinopril 5 MG TAB PO SCH (08:41)
[2017-07-30] MEDS: Gabapentin 100 MG CAP PO SCH ×2 (08:41→20:46)
[2017-07-30] MEDS: Bacitracin Zinc 1 Packet TOP SCH ×2 (08:41→20:46)
[2017-07-30] MEDS: Ascorbic Acid 500 mg Chewable Tablet PO SCH (08:41)
[2017-07-31] MEDS: Cyclobenzaprine 10 MG TAB PO PRN (01:04)
[2017-07-31] MEDS: HYDROcodone/Acetaminophen 7.5/325 mg Tablet PO PRN ×4 (01:04→19:08)
[2017-07-31] MEDS: Polyethylene Glycol 3350 17 GM Packet PO SCH (08:47)
[2017-07-31] MEDS: Famotidine 20 MG TAB PO SCH (08:47)
[2017-07-31] MEDS: Lisinopril 5 MG TAB PO SCH (08:47)
[2017-07-31] MEDS: Tamsulosin HCl 0.4 MG CAP PO SCH (08:48)
[2017-07-31] MEDS: Gabapentin 100 MG CAP PO SCH ×2 (08:48→20:49)
[2017-07-31] MEDS: Rivaroxaban 10 MG TAB PO SCH (08:48)
[2017-07-31] MEDS: Senokot S 8.6-50 MG TAB PO SCH ×2 (08:48→20:49)
[2017-07-31] MEDS: Spironolactone 25 MG TAB PO SCH (08:48)
[2017-07-31] MEDS: Bacitracin Zinc 1 Packet TOP SCH ×2 (08:48→20:49)
[2017-07-31] MEDS: Carvedilol 3.125 MG TAB PO SCH ×2 (08:48→17:05)
[2017-07-31] MEDS: Ascorbic Acid 500 mg Chewable Tablet PO SCH (08:48)
[2017-07-31] MEDS: Emollient 15 oz bottle 450 ML, Triamcinolone Acetonide 200 MG TOP SCH ×4 (08:49→20:50)
[2017-08-01 06:04] LABS: Hemoglobin 11.8 g/dL (14.0-18.0); Platelet Count 192 thou/uL (130-400)
[2017-08-01] MEDS: HYDROcodone/Acetaminophen 7.5/325 mg Tablet PO PRN ×2 (06:22→14:32)
[2017-08-01] MEDS: Polyethylene Glycol 3350 17 GM Packet PO SCH (08:45)
[2017-08-01] MEDS: Famotidine 20 MG TAB PO SCH (08:46)
[2017-08-01] MEDS: Cyclobenzaprine 10 MG TAB PO PRN (08:46)
[2017-08-01] MEDS: Bacitracin Zinc 1 Packet TOP SCH (08:46)
[2017-08-01] MEDS: Rivaroxaban 10 MG TAB PO SCH (08:47)
[2017-08-01] MEDS: Gabapentin 100 MG CAP PO SCH ×2 (08:47→20:29)
[2017-08-01] MEDS: Senokot S 8.6-50 MG TAB PO SCH ×2 (08:48→20:30)
[2017-08-01] MEDS: Carvedilol 3.125 MG TAB PO SCH ×2 (08:48→16:48)
[2017-08-01] MEDS: Tamsulosin HCl 0.4 MG CAP PO SCH (08:48)
[2017-08-01] MEDS: Lisinopril 5 MG TAB PO SCH (08:48)
[2017-08-01] MEDS: Spironolactone 25 MG TAB PO SCH (08:49)
[2017-08-01] MEDS: Ascorbic Acid 500 mg Chewable Tablet PO SCH (08:49)
[2017-08-01] MEDS: Emollient 15 oz bottle 450 ML, Triamcinolone Acetonide 200 MG TOP SCH ×4 (08:50→20:35)
[2017-08-02] MEDS: HYDROcodone/Acetaminophen 7.5/325 mg Tablet PO PRN ×2 (00:14→18:08)
[2017-08-02] MEDS: Cyclobenzaprine 10 MG TAB PO PRN ×3 (00:15→14:46)
[2017-08-02] MEDS: Polyethylene Glycol 3350 17 GM Packet PO SCH (08:35)
[2017-08-02] MEDS: Famotidine 20 MG TAB PO SCH (08:37)
[2017-08-02] MEDS: Spironolactone 25 MG TAB PO SCH (08:37)
[2017-08-02] MEDS: Senokot S 8.6-50 MG TAB PO SCH ×2 (08:37→20:56)
[2017-08-02] MEDS: Gabapentin 100 MG CAP PO SCH ×2 (08:37→20:56)
[2017-08-02] MEDS: Tamsulosin HCl 0.4 MG CAP PO SCH (08:37)
[2017-08-02] MEDS: Lisinopril 5 MG TAB PO SCH (08:37)
[2017-08-02] MEDS: Ascorbic Acid 500 mg Chewable Tablet PO SCH (08:37)
[2017-08-02] MEDS: Carvedilol 3.125 MG TAB PO SCH ×2 (08:38→16:48)
[2017-08-02] MEDS: Rivaroxaban 10 MG TAB PO SCH (08:38)
[2017-08-02] MEDS: Emollient 15 oz bottle 450 ML, Triamcinolone Acetonide 200 MG TOP SCH ×2 (08:39)
[2017-08-03] MEDS: Emollient 15 oz bottle 450 ML, Triamcinolone Acetonide 200 MG TOP SCH ×4 (05:41→08:32)
[2017-08-03 06:49] LABS: Hemoglobin 11.8 g/dL (14.0-18.0); Platelet Count 173 thou/uL (130-400)
[2017-08-03 08:09] VITALS: BP 138/69; TEMP 97.8
[2017-08-03] MEDS: Spironolactone 25 MG TAB PO SCH (08:31)
[2017-08-03] MEDS: Gabapentin 100 MG CAP PO SCH (08:31)
[2017-08-03] MEDS: Tamsulosin HCl 0.4 MG CAP PO SCH (08:31)
[2017-08-03] MEDS: Carvedilol 3.125 MG TAB PO SCH (08:31)
[2017-08-03] MEDS: Rivaroxaban 10 MG TAB PO SCH (08:31)
[2017-08-03] MEDS: Senokot S 8.6-50 MG TAB PO SCH (08:31)
[2017-08-03] MEDS: Ascorbic Acid 500 mg Chewable Tablet PO SCH (08:31)
[2017-08-03] MEDS: Lisinopril 5 MG TAB PO SCH (08:31)
[2017-08-03] MEDS: Famotidine 20 MG TAB PO SCH (08:31)
[2017-08-03] MEDS: Polyethylene Glycol 3350 17 GM Packet PO SCH (08:32)
[2017-08-03] MEDS: HYDROcodone/Acetaminophen 7.5/325 mg Tablet PO PRN (10:12)
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
== END 2017-08-03 13:15 | disposition home or self-care (01) | DRG 560 ==
LOC: MADMS 16:43
PROVIDERS: ADMIT Family Medicine; ATTEND Family Medicine
DX: S12.110D Anterior displaced Type II dens fracture, subsequent encounter for fracture with routine healing (principal); I13.0 Hypertensive heart and chronic kidney disease with heart failure and stage 1 through stage 4 chronic kidney disease, or unspecified chronic kidney disease; N18.3 Chronic kidney disease, stage 3 (moderate); I50.9 Heart failure, unspecified; T14.8XXA Other injury of unspecified body region, initial encounter; I25.10 Atherosclerotic heart disease of native coronary artery without angina pectoris; D64.9 Anemia, unspecified; Z85.820 Personal history of malignant melanoma of skin; Z95.0 Presence of cardiac pacemaker; Z95.5 Presence of coronary angioplasty implant and graft; K59.00 Constipation, unspecified; Z79.01 Long term (current) use of anticoagulants; R60.0 Localized edema
CPT/HCPCS: 36415; 72050; 82565; 85014; 85018; 85049; G8978-GP-CL; G8979-GP-CI; J3301; J7620

== ENCOUNTER 2018-03-07 13:37 | Emergency (ER) | payer MEDICARE ==
[2018-03-07 14:31] LABS: Bilirubin Large (Negative); Blood, Urine Large (Negative); Glucose, Urine (Dipstick) Negative (Negative); Leukocyte Large (Negative); Nitrite Positive (Negative); Protein, Urine (Dipstick) > or equal to 300 mg/dL (Neg-Trace); Specific Gravity, Urine 1.015 (1.005-1.030); pH, Urine 5.5 (5.0-9.0)
[2018-03-07 14:32] LABS: Clarity Cloudy (Clear)
[2018-03-07 14:42] LABS: #Basophils 0.1 thou/uL (0.0-0.2); #Eosinphils 0.2 thou/uL (0.0-0.7); #Lymphocytes 1.4 thou/uL (1.20-3.40); #Monocytes 0.5 thou/uL (0.11-0.59); %Eosinophils 3.5 % (0.0-10.0); %Lymphocytes 27.6 % (21.0-51.0); %Monocytes 8.9 % (0.0-10.0); Hemoglobin 14.3 g/dL (14.0-18.0); Mean Corpuscular HGB CONC 32.3 g/dL (32.0-36.0); Mean Corpuscular Hemoglobin 30.3 pg (27.0-31.0); Mean Corpuscular Volume 93.7 fl (80.0-94.0); Mean Platelet Volume 7.6 fL (7.4-10.4); Platelet Count 168 thou/uL (130-400); RBC Distribution Width 13.2 % (11.5-14.5); Red Blood Cell (RBC) Count 4.71 mill/uL (4.70-6.10); White Blood Cell (WBC) Count 5.1 thou/uL (4.8-10.8)
[2018-03-07 14:43] LABS: Bacteria/HPF Rare-Few HPF (None Seen); RBC/HPF GREATER THAN 50-TNTC HPF (0-3); Squamous Epithelial 0-3 HPF (0-3)
[2018-03-07 14:44] LABS: Crystals/HPF 2+ AMORPH URATES HPF (Negative)
[2018-03-07 14:48] LABS: INR-International Normal Ratio 1.1; PTT 24.4 SEC (22.9-36.1); Prothrombin Time 13.9 SEC (12.0-14.7)
[2018-03-07 14:58] LABS: ALT (SGPT) 12 U/L (8-55); AST (SGOT) 18 U/L (5-34); Albumin 3.6 g/dL (3.4-4.8); Alkaline Phosphatase 80 U/L (40-150); Anion Gap 15 mmol/L (10-20); BUN (Urea Nitrogen) 42 mg/dL (8.4-25.7); Bilirubin, Total 0.6 mg/dL (0.2-1.2); Calc. Creatinine Clearance 0 mL/min (70-130); Calcium 8.9 mg/dL (7.8-10.44); Carbon Dioxide 19 mmol/L (23-31); Chloride 103 mmol/L (98-107); Estimated GFR-MDRD 27; Globulin 3.2 g/dL (2.4-3.5); Glucose 101 mg/dL (83-110); Potassium 6.2 mmol/L (3.5-5.1); Protein, Total 6.8 g/dL (5.8-8.1); Sodium 131 mmol/L (136-145)
== END 2018-03-07 17:06 | disposition short-term general hospital (02) ==
LOC: MADERS 13:37
DX: I13.0 Hypertensive heart and chronic kidney disease with heart failure and stage 1 through stage 4 chronic kidney disease, or unspecified chronic kidney disease (principal); N18.9 Chronic kidney disease, unspecified; I50.9 Heart failure, unspecified; R31.0 Gross hematuria; N40.0 Benign prostatic hyperplasia without lower urinary tract symptoms; E87.5 Hyperkalemia; Z95.0 Presence of cardiac pacemaker; Z79.82 Long term (current) use of aspirin; Z79.891 Long term (current) use of opiate analgesic; Z79.899 Other long term (current) drug therapy
CPT/HCPCS: 36415; 80053; 81001; 83880; 85025; 85610; 85730; 87086; 93005; J7620

== ENCOUNTER 2018-04-01 11:56 | Outpatient (CLI) | payer MEDICARE ==
[2018-04-01 12:27] LABS: INR-International Normal Ratio 1.1; PTT 25.9 SEC (22.9-36.1); Prothrombin Time 14.2 SEC (12.0-14.7)
[2018-04-01 12:34] LABS: Hemoglobin 13.4 g/dL (14.0-18.0); Mean Corpuscular HGB CONC 32.3 g/dL (32.0-36.0); Mean Corpuscular Hemoglobin 30.7 pg (27.0-31.0); Mean Corpuscular Volume 95.2 fl (80.0-94.0); Mean Platelet Volume 6.9 fL (7.4-10.4); Platelet Count 144 thou/uL (130-400); RBC Distribution Width 13.2 % (11.5-14.5); Red Blood Cell (RBC) Count 4.37 mill/uL (4.70-6.10); White Blood Cell (WBC) Count 5.1 thou/uL (4.8-10.8)
[2018-04-01 12:35] LABS: ALT (SGPT) 9 U/L (8-55); AST (SGOT) 16 U/L (5-34); Albumin 3.4 g/dL (3.4-4.8); Alkaline Phosphatase 78 U/L (40-150); Anion Gap 11 mmol/L (10-20); BUN (Urea Nitrogen) 32 mg/dL (8.4-25.7); Bilirubin, Total 0.5 mg/dL (0.2-1.2); Calc. Creatinine Clearance 0 mL/min (70-130); Calcium 8.4 mg/dL (7.8-10.44); Carbon Dioxide 23 mmol/L (23-31); Chloride 108 mmol/L (98-107); Estimated GFR-MDRD 49; Globulin 3.1 g/dL (2.4-3.5); Glucose 103 mg/dL (83-110); Potassium 4.7 mmol/L (3.5-5.1); Protein, Total 6.5 g/dL (5.8-8.1); Sodium 137 mmol/L (136-145)
[2018-04-01 12:55] LABS: Anisocytosis SLIGHT = 6-15 cells (100X) (0-5/hpf); MDiff Complete? YES
[2018-04-01 12:56] LABS: Eosinophils 2 % (0-10); Lymphocytes 27 % (21-51); Monocytes 6 % (0-10); Neutrophil 65 % (42-75); PLT Morphology Comment Appears Adequate
== END 2018-04-01 11:57 | disposition home or self-care (01) ==
LOC: MADLABBHPM 11:56
PROVIDERS: ATTEND Family Medicine
DX: R31.0 Gross hematuria (principal); R39.9 Unspecified symptoms and signs involving the genitourinary system
CPT/HCPCS: 36415; 80053; 85007; 85027; 85610; 85730; 87086

== ENCOUNTER 2018-04-12 15:13 | Emergency (ER) | payer MEDICARE ==
[2018-04-12 15:45] LABS: Bilirubin Negative (Negative); Blood, Urine Large (Negative); Clarity Cloudy (Clear); Glucose, Urine (Dipstick) Negative (Negative); Leukocyte Negative (Negative); Nitrite Negative (Negative); Protein, Urine (Dipstick) 100 mg/dL (Neg-Trace); Specific Gravity, Urine 1.015 (1.005-1.030); Urobilinogen 0.2 mg/dL (0.2-1.0)
[2018-04-12 15:49] LABS: RBC/HPF GREATER THAN 50-TNTC HPF (0-3)
[2018-04-12 15:50] LABS: Bacteria/HPF Rare-Few HPF (None Seen)
[2018-04-12 16:26] LABS: #Basophils 0.1 thou/uL (0.0-0.2); #Eosinphils 0.2 thou/uL (0.0-0.7); #Lymphocytes 1.6 thou/uL (1.20-3.40); #Monocytes 0.4 thou/uL (0.11-0.59); #Neutrophils 3.1 thou/uL (1.40-6.50); %Basophils 1.1 % (0.0-1.0); %Eosinophils 4.2 % (0.0-10.0); %Lymphocytes 29.5 % (21.0-51.0); %Monocytes 7.8 % (0.0-10.0); %Neutrophils 57.4 % (42.0-75.0); Hemoglobin 13.9 g/dL (14.0-18.0); Mean Corpuscular HGB CONC 32.6 g/dL (32.0-36.0); Mean Corpuscular Hemoglobin 30.8 pg (27.0-31.0); Mean Corpuscular Volume 94.6 fl (80.0-94.0); Mean Platelet Volume 6.5 fL (7.4-10.4); Platelet Count 163 thou/uL (130-400); RBC Distribution Width 13.2 % (11.5-14.5); Red Blood Cell (RBC) Count 4.52 mill/uL (4.70-6.10); White Blood Cell (WBC) Count 5.4 thou/uL (4.8-10.8)
[2018-04-12 16:43] LABS: ALT (SGPT) 9 U/L (8-55); AST (SGOT) 17 U/L (5-34); Albumin 3.6 g/dL (3.4-4.8); Alkaline Phosphatase 82 U/L (40-150); Anion Gap 17 mmol/L (10-20); BUN (Urea Nitrogen) 39 mg/dL (8.4-25.7); Bilirubin, Total 0.6 mg/dL (0.2-1.2); Calc. Creatinine Clearance 0 mL/min (70-130); Calcium 8.7 mg/dL (7.8-10.44); Carbon Dioxide 23 mmol/L (23-31); Chloride 102 mmol/L (98-107); Estimated GFR-MDRD 27; Globulin 3.3 g/dL (2.4-3.5); Glucose 139 mg/dL (83-110); Potassium 4.9 mmol/L (3.5-5.1); Protein, Total 6.9 g/dL (5.8-8.1); Sodium 137 mmol/L (136-145)
== END 2018-04-12 17:14 | disposition home or self-care (01) ==
LOC: MADERS 15:13
DX: R31.0 Gross hematuria (principal); I10 Essential (primary) hypertension; N40.0 Benign prostatic hyperplasia without lower urinary tract symptoms
CPT/HCPCS: 36415; 80053; 81001; 85025; 87086; 99283

== ENCOUNTER 2018-04-17 09:26 | Outpatient (CLI) | payer MEDICARE ==
[2018-04-17 10:34] LABS: Anion Gap 14 mmol/L (10-20); BUN (Urea Nitrogen) 50 mg/dL (8.4-25.7); Calc. Creatinine Clearance 0 mL/min (70-130); Carbon Dioxide 28 mmol/L (23-31); Chloride 100 mmol/L (98-107); Estimated GFR-MDRD 39; Glucose 97 mg/dL (83-110); Potassium 4.7 mmol/L (3.5-5.1); Sodium 137 mmol/L (136-145)
== END 2018-04-17 09:27 | disposition home or self-care (01) ==
LOC: MADLABBHPM 09:26
PROVIDERS: ATTEND Family Medicine
DX: N18.4 Chronic kidney disease, stage 4 (severe) (principal)
CPT/HCPCS: 36415; 80048

== ENCOUNTER 2018-04-24 14:54 | Outpatient (CLI) | payer MEDICARE ==
[2018-04-24 15:20] LABS: Anion Gap 16 mmol/L (10-20); BUN (Urea Nitrogen) 31 mg/dL (8.4-25.7); Calc. Creatinine Clearance 0 mL/min (70-130); Calcium 8.8 mg/dL (7.8-10.44); Carbon Dioxide 23 mmol/L (23-31); Chloride 104 mmol/L (98-107); Estimated GFR-MDRD 45; Glucose 93 mg/dL (83-110); Potassium 4.4 mmol/L (3.5-5.1); Sodium 139 mmol/L (136-145)
== END 2018-04-24 14:55 | disposition home or self-care (01) ==
LOC: MADLABBHPM 14:54
PROVIDERS: ATTEND Internal Medicine Nephrology
DX: N18.4 Chronic kidney disease, stage 4 (severe) (principal)
CPT/HCPCS: 36415; 80048